=== PATIENT | female | born 1935 | race Caucasian/White ===

== ENCOUNTER 2017-08-05 10:57 | Emergency (ER) | payer OTHER, MEDICARE ==
[~2017-08-05] VITALS: Ht 144.8 cm; Wt 49.9 kg
--- NOTE | 2017-08-05 11:48 | ED GENERAL ADULT ---
History of Present Illness General Chief Complaint: General Adult Stated Complaint: PER PT "I FEEL AWFUL" Source: patient, family Exam Limitations: dementia Vital Signs & Intake/Output Vital Signs & Intake/Output Vital Signs Date Time Temp Pulse Resp B/P B/P Pulse O2 O2 Flow FiO2 Mean Ox Delivery Rate 08/05 1731 98.4 74 18 120/61 92 Room Air 08/05 1416 98.2 85 18 154/74 95 Room Air 08/05 1304 Room Air 08/05 1241 97.5 08/05 1104 97.1 78 15 131/75 94 Room Air Room Air Allergies Coded Allergies: oxycodone (Intermediate, RASH 08/05/17) Reconcile Medications Aspirin (Aspirin*) 81 MG TAB.CHEW 1 TAB PO DAILY HEART HEALTH (Reported) Calcium Carbonate/Vitamin D3 (Calcium 500 + D Tablet) 500 MG-400 TABLET 1 TAB PO BID VITAMIN SUPPORT (Reported) Cholecalciferol (Vitamin D3) 1,000 UNIT TABLET 1 TAB PO DAILY VITAMIN SUPPORT (Reported) Donepezil HCl 10 MG TABLET 1 TAB PO DAILY DEMENTIA (Reported) Escitalopram Oxalate 10 MG TABLET 1 TAB PO DAILY MENTAL HEALTH (Reported) Lactobacillus Acidophilus (Probiotic) 10 BILLION CELL CAPSULE 2 CAP PO DAILY GI (Reported) Multivitamin (Daily Multiple Vitamin) 1 EACH TABLET 1 TAB PO DAILY VITAMIN SUPPORT (Reported) Jackson-3 Fatty Acids/Fish Oil (Fish Oil 1,000 MG Capsule) 340 MG-1,000 MG CAPSULE 1 CAP PO DAILY SUPPLEMENT (Reported) Prednisone 5 MG TABLET 1 TAB PO BID STEROID (Reported) Triage Note: PT TO ED WITH DAUGHTER FOR NAUSEA AND 2 EPISODES OF VOMITING THIS MORNING (SAW DR. CORDOVA AND PRESCRIBED MEDS). LAST BM TODAY WITHOUT DIFFICULTIES. PT HAS NOT VOIDED THIS MORNING PER DAUGHTER. PT REPORTS THE PAIN IS MAINLY IN HER BACK WHICH IS CHRONIC. Triage Nurses Notes Reviewed? yes Onset: Abrupt Duration: day(s): (1) Timing: multiple episodes today Injury Environment: home Severity: mild, moderate No Modifying Factors: none Associated Symptoms: vomiting HPI: 81 year old female with history of dementia presents from home with daughter for chief complaint of "feeling awful". Per the daughter she vomited twice and did not make any urine. No abdominal pain or diarrhea. Patient reports chronic back pain. Past History Travel History Traveled to [place] past 21 day No Medical History Any Pertinent Medical History? see below for history Neurological: dementia Respiratory: COPD, emphysema Gastrointestinal: BARROTS ESOPHAGUS Musculoskeletal: RA Surgical History Surgical History: non-contributory Psychosocial History What is your primary language Arabic Tobacco Use: Quit >30 days ago Family History Hx Contributory? No Review of Systems Review of Systems Constitutional: Reports: weakness. Denies: chills, fever. EENTM: Reports: no symptoms. Respiratory: Denies: cough, short of breath. Cardiovascular: Denies: chest pain, palpitations. GI: Reports: nausea, vomiting. Denies: abdominal pain, diarrhea. Genitourinary: Denies: discharge, dysuria, frequency, hematuria. Musculoskeletal: Reports: back pain (CHRONIC). Skin: Reports: no symptoms. Neurological/Psychological: Reports: no symptoms. Hematologic/Endocrine: Denies: bruising, bleeding, polyuria, polydipsia. Immunologic/Allergic: Denies: splenectomy. All Other Systems: Reviewed and Negative Physical Exam Physical Exam General Appearance: well developed/nourished, alert, awake, mild distress Head: atraumatic, normal appearance Eyes: Bilateral: normal appearance, PERRL, EOMI. Ears, Nose, Throat: normal pharynx, DRY ORAL MUCOSA Neck: normal inspection, supple, full range of motion Respiratory: normal breath sounds, chest non-tender, no respiratory distress Cardiovascular: regular rate/rhythm Peripheral Pulses: 2+ radial (R), 2+ radial (L) Gastrointestinal: normal bowel sounds, soft, non-tender Extremities: normal inspection, normal capillary refill, normal range of motion, no edema Neurologic/Psych: no motor/sensory deficits, awake, alert Skin: intact, normal color, warm/dry Core Measures ACS in differential dx? No CVA/TIA Diagnosis: No Sepsis Present: No Sepsis Focused Exam Completed? No Progress Differential Diagnoses I considered the following diagnoses in my evaluation of the patient: [SBO, GASTRITIS, DEHYDRATION, COREEN, ELECTROLYTE ABNORMALITY, ] Plan of Care: Orders Procedure Date/time Status Regular Diet 08/06 B Active LACTIC ACID 08/05 1431 Complete CULTURE,STOOL 08/05 1348 Active C.DIFFICILE 08/05 1348 Active Straight Cath 08/05 1203 Active RAPID VIRAL INFLUENZA A 08/05 1203 Complete EKG 08/05 1148 Active URINALYSIS 08/05 1131 Complete TROPONIN LEVEL 08/05 1131 Complete LACTIC ACID 08/05 1131 Complete COMPREHENSIVE METABOLIC PANEL 08/05 1131 Complete CBC WITHOUT DIFFERENTIAL 08/05 1131 Complete Laboratory Tests 08/05/17 1525: Lactic Acid 1.1 08/05/17 1336: Urine Color YEL, Urine Clarity CLEAR, Urine pH 6.0, Ur Specific [place] 1.020, Urine Protein NEG, Urine Ketones NEG, Urine Nitrite NEG, Urine Bilirubin NEG, Urine Urobilinogen 0.2, Ur Leukocyte Esterase NEG, Ur Microscopic EXAM NOT REQUIRED, Urine Hemoglobin NEG, Urine Glucose NEG 08/05/17 1215: Anion Gap 9, Estimated GFR > 60, BUN/Creatinine Ratio 36.0 H, Glucose 119 H, Lactic Acid 2.3 H, Calcium 9.0, Total Bilirubin 0.9, AST 17, ALT 32, Alkaline Phosphatase 62, Troponin I < 0.01, Total Protein 6.1 L, Albumin 3.3 L, Globulin 2.8, Albumin/Globulin Ratio 1.2, CBC w Diff NO MAN DIFF REQ, RBC 3.89 L, MCV 80.3 L, MCH 26.0 L, RDW 15.8 H, MPV 7.6, Gran % 90.5 H, Lymphocytes % 4.9 L, Monocytes % 3.9, Eosinophils % 0.5, Basophils % 0.2, Absolute Granulocytes 12.5 H, Absolute Lymphocytes 0.7 L, Absolute Monocytes 0.5, Absolute Eosinophils 0.1, Absolute Basophils 0, PUBS MCHC 32.4 L Microbiology 08/05 1348 STOOL: Clostridium difficile Toxin A & B - ORD 08/05 1348 STOOL: Stool Culture - ORD 08/05 1215 NASOPHARYN: Influenza Virus A & B Rapid Smear - COMP PATIETN WITH ELEVATED LACTIC ACID. ADMINISTERED IV FLUIDS, REPEAT LACTIC WNL. TOLERATING PO WELL AT BEDSIDE AND AMBULATED WITHOUT DISTRESS. STABLE FOR DISCHARGE HOME. NO CLINICAL SIGNS OF CHF ON EXAMINATION. NO FEVER OR HYPOTENSION. WILL FOLLOW UP RESULTS OF IMAGING WITH PCP. Diagnostic Imaging: Viewed by Me: Radiology Read, CT Scan. Discussed w/RAD: Radiology Read, CT Scan. Initial ED EKG: LVH, LAD, SINUS TACH 100 BPM Comments: PATIENT: AMADOR VALLECILLO PRESENT AGE: 81 PATIENT ACCOUNT NO: [id number] : 36 LOCATION: [facility] ORDERING PHYSICIAN: Celina River MD SERVICE DATE: 01/05/18-1203 EXAM TYPE: RAD - XRY-PORTABLE CHEST XRAY EXAMINATION: XR PORTABLE CHEST CLINICAL INFORMATION: SOB. COMPARISON: Chest 03/15/2017. TECHNIQUE: Portable frontal view of the chest was obtained. FINDINGS: There is hyperinflation of lungs likely COPD from previous study. Prominent reticular interstitial changes are seen especially in both lung bases likely vascular congestion. There is prominent bilateral lucien likely underlying pulmonary arterial hypertension. The heart size is borderline enlarged. No consolidation seen. No gross bony abnormality. IMPRESSION: Cardiomegaly with pulmonary vascular congestion. Emphysema, likely some chronic interstitial changes in both lungs. DICTATED BY: Sivan CONTEH,Renard DATE/TIME DICTATED:08/05/171248 CARDIOGRAPH OPERATOR:CHARU DATE/TIME TRANSCRIBED:08/05/171248 CONFIDENTIAL, DO NOT COPY WITHOUT APPROPRIATE AUTHORIZATION. <Electronically signed in Other Vendor System> SIGNED BY: Sivan CONTEH,Renard 08/05/17 1250 PATIENT: AMADOR VALLECILLO PRESENT AGE: 81 PATIENT ACCOUNT NO: [id number] : 36 LOCATION: [facility] ORDERING PHYSICIAN: Celina River MD SERVICE DATE: 08/05/17 EXAM TYPE: CAT - CT ABD & PELVIS W IV CONTRAST EXAMINATION: CT ABDOMEN AND PELVIS WITH CONTRAST CLINICAL INFORMATION: Abdominal pain, leukocytosis and dementia. COMPARISON: None TECHNIQUE: Multidetector volumetric imaging was performed of the abdomen and pelvis following IV administration of 95 mL of Optiray 320 intravenous contrast. Sagittal and coronal reformatted images were obtained on the technologist's workstation. DLP: 230 mGy-cm FINDINGS: LUNG BASES: Findings in the lung bases include cardiomegaly, atherosclerotic calcification of right coronary artery and atherosclerosis of the descending thoracic aorta. Scattered linear and bandlike opacities of scarring and atelectasis, architectural distortion and minimal traction bronchiectasis in lung bases. 0.2 cm calcified granuloma in the left lower lobe. There is a surgical clip within the left lower lobe. There are paraseptal emphysematous changes. LIVER, GALLBLADDER, AND BILIARY TREE: Liver has normal size, contour and attenuation. 0.6 cm simple cyst in the left lobe of the liver. Gallbladder is unremarkable. No intrahepatic or extrahepatic bile duct dilatation. PANCREAS: Unremarkable. SPLEEN: Spleen is normal in size. Multiple noncalcified, noncystic hypodense lesions scattered throughout the spleen, largest measuring up to 1 cm. There are no perisplenic fluid collections. Splenic vein is patent. ADRENAL GLANDS: Unremarkable. KIDNEYS AND URETERS: Kidneys are normal in size and enhance symmetrically. No nephrolithiasis or hydronephrosis. Multiple bilateral renal cortical cysts. The ureters are unremarkable. BLADDER: Unremarkable. GASTROINTESTINAL TRACT: Loops of bowel are normal in size. Mild diverticulosis of the sigmoid colon without diverticulitis. No abdominal abscess, ascites or pneumoperitoneum. ABDOMINAL WALL: Bilateral fat-containing, indirect inguinal hernias. LYMPH NODES: Normal. VASCULAR: [id number] atherosclerosis of abdominal aorta and iliac arteries without aneurysm. PELVIC VISCERA: Status post hysterectomy. No pelvic mass or free fluid. OSSEOUS STRUCTURES: Old, healed intertrochanteric fracture of the left femur with femoral plate and dynamic neck screw in satisfactory position. Bones are diffusely osteoporotic. No acute findings in the severely degenerated lower thoracic and lumbar spine. There is a bone island of the posterior right ilium IMPRESSION: 1. Multiple hypodense foci scattered throughout the spleen are nonspecific but could represent abscesses or noncalcified granulomas. In a patient with leukocytosis, query whether there is septicemia. 2. Mild diverticulosis of the sigmoid colon without diverticulitis. 3. Findings in lung bases include cardiomegaly, paraseptal emphysema, postsurgical changes in the left lower lobe, scattered areas of scarring and atelectasis. DICTATED BY: Ayo Ceballos MD DATE/TIME DICTATED:08/05/171457 CARDIOGRAPH OPERATOR:CHARU DATE/TIME TRANSCRIBED:08/05/171457 CONFIDENTIAL, DO NOT COPY WITHOUT APPROPRIATE AUTHORIZATION. <Electronically signed in Other Vendor System> SIGNED BY: Ayo Ceballos MD 08/05/17 1519 Departure Departure Time of Disposition: 1815 Disposition: HOME OR SELF CARE Condition: Stable Clinical Impression Primary Impression: Leukocytosis Secondary Impressions: Dehydration Referrals: Carlos CONTEH,Gigi Zayas (PCP/Family) Additional Instructions: INCREASE YOUR FLUID INTAKE AT HOME FOLLOW UP WITH DR CORDOVA IN THE OFFICE NEXT WEEK FOR REEVALUATION TO GO OVER IMAGING REPORTS RETURN TO THE ER IMMEDIATELY FOR ANY CHANGING OR WORSENING SYMPTOMS, FEVER, CHILLS Departure Forms: Customer Survey General Discharge Information Critical Care Note Critical Care Note Critical Care Time: 30-74 min
[2017-08-05] MEDS ORDERED: PREDNISONE5 M1 PO (12:36)
[2017-08-05] MEDS ORDERED: ESCITALOPRAM OX10 MG PO (12:36)
[2017-08-05] MEDS ORDERED: ASPIRIN81 M4 PO (12:37)
[2017-08-05] MEDS ORDERED: DONEPEZIL HCL10 M1 PO (12:37)
[2017-08-05] MEDS ORDERED: VITAMIN D31000 UNI2 PO (12:37)
[2017-08-05] MEDS ORDERED: FISH OIL 1,0001 EACH PO (12:37)
[2017-08-05] MEDS ORDERED: CALCIUM 500 +1 EAC5 PO (12:38)
[2017-08-05] MEDS ORDERED: PROBIOTIC1 EACH PO (12:38)
[2017-08-05] MEDS ORDERED: DAILY MULTIPLE1 EACH PO (12:39)
[2017-08-05 12:40] LABS: ABSOLUTE BASOPHIL COUNT 0 /CUMM (0.0-0.2); ABSOLUTE EOSINOPHIL COUNT 0.1 /CUMM (0.0-0.7); ABSOLUTE GRANULOCYTE CT 12.5 /CUMM (1.4-6.5); ABSOLUTE LYMPH COUNT 0.7 /CUMM (1.2-3.4); ABSOLUTE MONOCYTE COUNT 0.5 /CUMM (0.10-0.60); BASOPHIL % 0.2 % (0.0-2.0); EOSINOPHIL % 0.5 % (0-5); HEMATOCRIT 31.2 % (37-47); MEAN CORPUSCULAR HGB CONC 32.4 G/DL (33.0-37.0); MEAN CORPUSCULAR VOLUME 80.3 FL (81.0-99.0); MEAN PLATELET VOLUME 7.6 FL (7.4-10.4); RBC DISTRIBUTION WIDTH 15.8 % (11.5-14.5); RED BLOOD CELL CT 3.89 /CUMM (4.20-5.40); WHITE BLOOD CELL COUNT 13.9 /CUMM (4.8-10.8)
--- NOTE | 2017-08-05 12:55 | RADIOLOGY REPORT ---
EXAMINATION: XR PORTABLE CHEST CLINICAL INFORMATION: SOB. COMPARISON: Chest 03/15/2017. TECHNIQUE: Portable frontal view of the chest was obtained. FINDINGS: There is hyperinflation of lungs likely COPD from previous study. Prominent reticular interstitial changes are seen especially in both lung bases likely vascular congestion. There is prominent bilateral lucien likely underlying pulmonary arterial hypertension. The heart size is borderline enlarged. No consolidation seen. No gross bony abnormality. IMPRESSION: Cardiomegaly with pulmonary vascular congestion. Emphysema, likely some chronic interstitial changes in both lungs.
[2017-08-05 13:16] LABS: GRANULOCYTE % 90.5 % (42.2-75.2); PLATELET COUNT 369 /CUMM (130-400)
--- NOTE | 2017-08-05 15:19 | CT SCAN REPORT ---
EXAMINATION: CT ABDOMEN AND PELVIS WITH CONTRAST CLINICAL INFORMATION: Abdominal pain, leukocytosis and dementia. COMPARISON: None TECHNIQUE: Multidetector volumetric imaging was performed of the abdomen and pelvis following IV administration of 95 mL of Optiray 320 intravenous contrast. Sagittal and coronal reformatted images were obtained on the technologist's workstation. DLP: 230 mGy-cm FINDINGS: LUNG BASES: Findings in the lung bases include cardiomegaly, atherosclerotic calcification of right coronary artery and atherosclerosis of the descending thoracic aorta. Scattered linear and bandlike opacities of scarring and atelectasis, architectural distortion and minimal traction bronchiectasis in lung bases. 0.2 cm calcified granuloma in the left lower lobe. There is a surgical clip within the left lower lobe. There are paraseptal emphysematous changes. LIVER, GALLBLADDER, AND BILIARY TREE: Liver has normal size, contour and attenuation. 0.6 cm simple cyst in the left lobe of the liver. Gallbladder is unremarkable. No intrahepatic or extrahepatic bile duct dilatation. PANCREAS: Unremarkable. SPLEEN: Spleen is normal in size. Multiple noncalcified, noncystic hypodense lesions scattered throughout the spleen, largest measuring up to 1 cm. There are no perisplenic fluid collections. Splenic vein is patent. ADRENAL GLANDS: Unremarkable. KIDNEYS AND URETERS: Kidneys are normal in size and enhance symmetrically. No nephrolithiasis or hydronephrosis. Multiple bilateral renal cortical cysts. The ureters are unremarkable. BLADDER: Unremarkable. GASTROINTESTINAL TRACT: Loops of bowel are normal in size. Mild diverticulosis of the sigmoid colon without diverticulitis. No abdominal abscess, ascites or pneumoperitoneum. ABDOMINAL WALL: Bilateral fat-containing, indirect inguinal hernias. LYMPH NODES: Normal. VASCULAR: [id number] atherosclerosis of abdominal aorta and iliac arteries without aneurysm. PELVIC VISCERA: Status post hysterectomy. No pelvic mass or free fluid. OSSEOUS STRUCTURES: Old, healed intertrochanteric fracture of the left femur with femoral plate and dynamic neck screw in satisfactory position. Bones are diffusely osteoporotic. No acute findings in the severely degenerated lower thoracic and lumbar spine. There is a bone island of the posterior right ilium IMPRESSION: 1. Multiple hypodense foci scattered throughout the spleen are nonspecific but could represent abscesses or noncalcified granulomas. In a patient with leukocytosis, query whether there is septicemia. 2. Mild diverticulosis of the sigmoid colon without diverticulitis. 3. Findings in lung bases include cardiomegaly, paraseptal emphysema, postsurgical changes in the left lower lobe, scattered areas of scarring and atelectasis.
[2017-08-05 17:31] VITALS: BP 120/61
== END 2017-08-05 19:28 ==
LOC: ERH 10:57
PROVIDERS: Physician Assistant Medical
DX: D72.829 Elevated white blood cell count, unspecified (principal); E86.0 Dehydration
CPT/HCPCS: 71045; 74177; 81003; 87045; 87804; 87804-59; 93005; 93010; 96374; 96375; 99291; J0131; J2405; J7040

== ENCOUNTER 2017-10-04 12:43 | Inpatient (IN) | payer OTHER, MEDICARE ==
[~2017-10-04] VITALS: Ht 139.7 cm; Wt 47.3 kg
[~2017-10-04 12:43] MED LIST: ASPIRIN81 M4 PO; CALCIUM 500 +1 EAC5 PO; DAILY MULTIPLE1 EACH PO; DONEPEZIL HCL10 M1 PO; ESCITALOPRAM OX10 MG PO; FISH OIL 1,0001 EACH PO; PREDNISONE5 M1 PO; PROBIOTIC1 EACH PO; VITAMIN D31000 UNI2 PO
--- NOTE | 2017-10-04 14:39 | ED MVC/FALL/TRAUMA COMPLAINT ---
History of Present Illness General Chief Complaint: Fall Stated Complaint: FALL X20 MIN AGO RIGHT LEG PAIN Source: patient, family Exam Limitations: no limitations Vital Signs & Intake/Output Vital Signs & Intake/Output Vital Signs Date Time Temp Pulse Resp B/P B/P Pulse O2 O2 Flow FiO2 Mean Ox Delivery Rate 10/04 2217 96.0 66 18 110/60 93 Room Air 10/04 2205 93 Room Air 10/04 2109 97.1 73 18 118/65 94 Room Air 10/04 1831 97.2 68 18 157/69 95 Room Air 10/04 1550 97.8 74 18 135/65 94 Room Air 10/04 1248 97.5 70 18 103/64 93 Room Air Allergies Coded Allergies: oxycodone (Intermediate, RASH 08/05/17) Reconcile Medications Aspirin (Aspirin*) 81 MG TAB.CHEW 1 TAB PO DAILY HEART HEALTH (Reported) Calcium Carbonate/Vitamin D3 (Calcium 500 + D Tablet) 500 MG-400 TABLET 1 TAB PO BID VITAMIN SUPPORT (Reported) Cholecalciferol (Vitamin D3) 1,000 UNIT TABLET 1 TAB PO DAILY VITAMIN SUPPORT (Reported) Donepezil HCl 10 MG TABLET 1 TAB PO DAILY DEMENTIA (Reported) Escitalopram Oxalate 10 MG TABLET 1 TAB PO DAILY MENTAL HEALTH (Reported) Lactobacillus Acidophilus (Probiotic) 10 BILLION CELL CAPSULE 2 CAP PO DAILY GI (Reported) Multivitamin (Daily Multiple Vitamin) 1 EACH TABLET 1 TAB PO DAILY VITAMIN SUPPORT (Reported) [place]-3 Fatty Acids/Fish Oil (Fish Oil 1,000 MG Capsule) 340 MG-1,000 MG CAPSULE 1 CAP PO DAILY SUPPLEMENT (Reported) Prednisone 5 MG TABLET 1 TAB PO BID STEROID (Reported) Triage Note: PT TO TRIAGE WITH HER DAUGHTER, WHO STATES THAT WHILE PT WAS WALKING INTO HOUSE HER R LEG GAVE OUT AND SHE FELL CUTTING HER R CONWAY. WHEN DAUGHTER TRIED TO GET PT UP TO WALK , PT WAS UNABLE TO AND HER RLE KEPT GIVING OUT. THIS NURSE ATTEMPTED TO ASSIST PT TO STAND BUT SHE WAS UNABLE TO , COMPLAINS OF PAIN TO HER RLE. DECLINES MEDS AT TRIAGE Triage Nurses Notes Reviewed? yes Onset: Abrupt Duration: minute(s): Timing: single episode today Severity: moderate Injuries/Fall Location: lower extremity Method of Injury: fall Loss of Consciousness: no loss of consciousness Modifying Factors: Worsens With: movement. HPI: 82yo female with hx of COPD, dementia presents to ED complaining of fall prior to arrival. Per patient's daughter, the patient fell onto her knees and Right lower leg. There was no head strike, no loss of consciousness. There was bleeding from right leg after the fall, patient's granddaughter placed bandage around this area. They tried to have patient stand and walk however she could not bear weight on the right leg so they came here to the emergency department. Patient complains of pain to right knee with movement. The patient denies back pain, neck pain, headache, abdominal pain, difficulty breathing. Daughter reports that the patient's tetanus status is up-to-date. (Jacqueline Acosta) Past History Travel History Traveled to [place] past 21 day No Medical History Any Pertinent Medical History? see below for history Neurological: dementia Respiratory: COPD, emphysema Gastrointestinal: BARROTS ESOPHAGUS Hepatic: NONE Musculoskeletal: RA Psychiatric: NONE Endocrine: NONE Blood Disorders: NONE Cancer(s): NONE BAR HOST/Reproductive: NONE Surgical History Surgical History: non-contributory Psychosocial History What is your primary language Ivorian Tobacco Use: Never used ETOH Use: denies use Illicit Drug Use: denies illicit drug use Family History Hx Contributory? No (Jacqueline Acosta) Review of Systems Review of Systems Constitutional: Reports: no symptoms. Eyes: Reports: no symptoms. Ears, Nose, Throat, Mouth: Reports: no symptoms. Respiratory: Reports: no symptoms. Cardiovascular: Reports: no symptoms. Gastrointestinal/Abdominal: Reports: no symptoms. Genitourinary: Reports: no symptoms. Musculoskeletal: Reports: see HPI. Skin: Reports: see HPI. Neurological/Psychological: Reports: no symptoms. All Other Systems: Reviewed and Negative (Jacqueline Acosta) Physical Exam Physical Exam General Appearance: well developed/nourished, no apparent distress, alert, awake Head: atraumatic, normal appearance Eyes: Bilateral: normal appearance, PERRL, EOMI. Ears, Nose, Throat, Mouth: hearing grossly normal, moist mucous membrane Neck: normal inspection, supple, full range of motion, no midline tenderness Respiratory: normal breath sounds, chest non-tender, no respiratory distress, lungs clear Cardiovascular: regular rate/rhythm, normal peripheral pulses Peripheral Pulses: 2+ dorsalis pedis (R), 2+ dorsalis pedis (L) Gastrointestinal: normal bowel sounds, soft, non-tender, no organomegaly Back: normal inspection, normal range of motion, no vertebral tenderness Extremities: tenderness to lateral and anterior right knee 3x2 cm skin avulsion to anterior right [place], no active bleeding No Hip/groin tenderness, no pain with passive ROM at hip joints Neurologic/Psych: awake, alert, oriented x 3, 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 No CVA/TIA Diagnosis No Sepsis Present: No Sepsis Focused Exam Completed? No (Amanda BELL,Jacqueline Blancas) Progress Differential Diagnosis: C/T/L spine injury, ext injury, pelvis injury, spinal cord injury Plan of Care: Orders Procedure Date/time Status Regular Diet 10/05 B Active CBC WITHOUT DIFFERENTIAL 10/05 599 Active BASIC ELECTROLYTES PLUS BUN&CR 10/05 599 Active Code Status 10/04 2226 Active Device(s) 10/04 2210 Active Weight 10/05 2203 Active Vital Signs 10/05 2203 Active Teach/Educate 10/05 2203 Active Pain Treatment and Response 10/05 2203 Active Nutritional Intake, Monitor 10/05 2203 Active Isolation 10/05 2203 Active Intake & Output 10/05 2203 Active Patient Care Conference 10/05 2203 Active Activity/Ambulation 10/05 2203 Active Pathway - chart 10/04 2033 Active TRC EVALUATION (GEN) 10/05 2019 Active OXYGEN SETUP (GEN) 10/05 2019 Active Saline Lock 10/05 2019 Active Pathway - chart 10/05 2019 Active House Staff 10/05 2019 Active Patient Data 10/05 2011 Active ED Holding Orders 10/04 1958 Active Admit to inpatient 10/04 1958 Active Vital Signs 10/04 1958 Active Code Status 10/04 195 Complete Durable Medical Equipment 10/04 1754 Active COMPREHENSIVE METABOLIC PANEL 10/04 173 Complete CBC WITHOUT DIFFERENTIAL 10/04 173 Complete Intake & Output 10/04 1712 Active VTE Mechanical Prophylaxis 10/04 UNK Active Current Medications Sig/Danita Start time Last Medication Dose Stop Time Status Admin Enoxaparin Sodium 40 MG DAILY 10/05 1000 UNVr (Lovenox) Acetaminophen 650 MG Q6P PRN 10/04 2044 AC (Tylenol) Acetaminophen 1,000 MG Q6P PRN 10/04 2044 AC (Ofirmev) Ketorolac 15 MG Q6P PRN 10/04 2044 AC 10/04 Tromethamine 10/074 (Toradol) Sodium Chloride 1,000 ML Q13H 10/04 2029 AC 10/04 (Normal Saline 0.9%) 10/05 2228 2111 Laboratory Tests 10/04/17 1825: Anion Gap 8, Estimated GFR > 60, BUN/Creatinine Ratio 50.0 H, Glucose 85, Calcium 9.1, Total Bilirubin 0.6, AST 13 L, ALT 26, Alkaline Phosphatase 58, Total Protein 5.7 L, Albumin 2.9 L, Globulin 2.8, Albumin/Globulin Ratio 1.0 L, CBC w Diff NO MAN DIFF REQ, RBC 4.05 L, MCV 76.7 L, MCH 25.0 L, MCHC 32.6 L, RDW 17.7 H, MPV 7.7, Gran % 89.7 H, Lymphocytes % 5.7 L, Monocytes % 4.3, Eosinophils % 0.1, Basophils % 0.2, Absolute Granulocytes 12.8 H, Absolute Lymphocytes 0.8 L, Absolute Monocytes 0.6, Absolute Eosinophils 0, Absolute Basophils 0 Right tibial plateau fracture identified on x-ray. Patient has intact distal pulses and sensation. Spoke with Dr. Gramajo regarding this patient - non weight bearing x 6 weeks. transfer to wheelchair. Treatment is allowing joint to heal and place in knee immobilizer. HE can follow up with patient in 2 weeks. Patient placed in knee immobilizer. Patient has steps in the home, family do not feel comfortable with taking patient home at this time, they do not believe they can assist her with her ADLs such as showering and transferring from bed to wheelchair. Case management reviewed patient's case. Patient requires a 3 minute stay prior to rehabilitation placement. Dr. Lopez present to see and evaluate the patient. Spoke with Dr. Hernandez regarding this patient's general medicine admission. Diagnostic Imaging: Viewed by Me: Radiology Read. Discussed w/RAD: Radiology Read. Radiology Impression: PATIENT: AMADOR VALLECILLO PRESENT AGE: 82 PATIENT ACCOUNT NO: [id number] : 36 LOCATION: [facility] ORDERING PHYSICIAN: Jacqueline BELL SERVICE DATE: 10/04/17 EXAM TYPE: RAD - XRY-KNEE COMPLETE RIGHT; [id number], RIGHT EXAMINATION: XR KNEE, RIGHT XR TIBIA AND FIBULA, RIGHT CLINICAL INFORMATION: Fall. COMPARISON: None TECHNIQUE: Four views of the right knee. Two views of the right tibia and fibula. FINDINGS: RIGHT KNEE: There is a comminuted impacted fracture of the lateral tibial plateau extending into the metadiaphysis. The fracture is minimally displaced. Lipohemarthrosis is present with a fat fluid level seen in the suprapatellar fossa on the shoot through lateral view of the knee. There is degenerative joint disease. There is narrowing of the medial and the lateral femorotibial joints with marginal bone spurs. There is also narrowing of the patellofemoral joint with a small marginal spur of the patella. RIGHT TIBIA AND FIBULA: There is a compression comminuted fracture of the lateral tibial plateau extending into the metadiaphysis. This is better seen on the right knee radiographs. No additional fracture of the right tibia or fibula. There is advanced degenerative change at the ankle joint. There is joint narrowing of the ankle joint with marginal bone spur and subchondral sclerosis involving the tibia and the talus. There is a large plantar calcaneal spur. IMPRESSION: 1. Intra-articular comminuted impacted fracture of the lateral tibial plateau. Lipohemarthrosis of the knee joint. This can be further assessed with CT scan. 2. 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 3. Degenerative joint narrowing of the ankle joint. DICTATED BY: Adelso Pathak MD DATE/TIME DICTATED:10/04/171642 [employer] :CHARU DATE/TIME TRANSCRIBED:10/04/171642 CONFIDENTIAL, DO NOT COPY WITHOUT APPROPRIATE AUTHORIZATION. <Electronically signed in Other Vendor System> SIGNED BY: Adleso Pathak MD 10/04/171658, PATIENT: AMADOR VALLECILLO PRESENT AGE: 82 PATIENT ACCOUNT NO: [id number] : LOCATION: [facility] ORDERING PHYSICIAN: Jacqueline BELL SERVICE DATE: 10/04/17 EXAM TYPE: RAD - XRY-HIP 2-3 VIEWS, RIGHT EXAMINATION: XR HIP, RIGHT CLINICAL INFORMATION: Status post fall. Evaluate for fracture. COMPARISON: None TECHNIQUE: Two views of the right hip. FINDINGS: Bones appear diffusely osteoporotic. Alignment is normal the right hip. No acute fracture, subluxation or focal soft tissue swelling. The femoroacetabular joint space is maintained. Multilevel degenerative disc space narrowing, vacuum disc phenomenon and osteophytosis of the partially visualized lumbar spine. IMPRESSION: No acute findings at the right hip. DICTATED BY: Ayo Ceballos MD DATE/TIME DICTATED:1648 [employer]:CHARU DATE/TIME TRANSCRIBED:10/04/171648 CONFIDENTIAL, DO NOT COPY WITHOUT APPROPRIATE AUTHORIZATION. <Electronically signed in Other Vendor System> SIGNED BY: Ayo Ceballos MD 10/04/171654 (Jacqueline Acosta) Departure Departure Disposition: STILL A PATIENT Condition: Stable Clinical Impression Primary Impression: Tibial plateau fracture, right Secondary Impressions: Fall Referrals: Gigi Gonzalez MD (PCP/Family) Departure Forms: Customer Survey General Discharge Information Admission Note Spoke With: True Dill MD[facility] Documentation of Exam: Documentation of any treatments & extenuating circumstances including Concerns Regarding Discharge (functional status, medication knowledge or non-compliance, living conditions, etc.) that warrant an admission rather than observation: [ Acute tibial plateau fracture requiring immobilization, pain management, physical therapy evaluation, short-term rehabilitation for assistance with a wheelchair and ADLs, nonweightbearing status for 6 months] (Amanda BELL,Jacqueline Blancas) PA/CREATIVE SERVICES WRITER Co-Sign Statement Statement: ED Attending supervision documentation- [X] I saw and evaluated the patient. I have also reviewed all the pertinent lab results and diagnostic results. I agree with the findings and the plan of care as documented in the PA's/CREATIVE SERVICES WRITER's documentation. [] I have reviewed the ED Record and agree with the PA's/CREATIVE SERVICES WRITER's documentation. [] Additions or exceptions (if any) to the PAs/CREATIVE SERVICES WRITER's note and plan are summarized below: [] (Thom Lopez DO)
--- NOTE | 2017-10-04 16:55 | RADIOLOGY REPORT ---
EXAMINATION: XR HIP, RIGHT CLINICAL INFORMATION: Status post fall. Evaluate for fracture. COMPARISON: None TECHNIQUE: Two views of the right hip. FINDINGS: Bones appear diffusely osteoporotic. Alignment is normal the right hip. No acute fracture, subluxation or focal soft tissue swelling. The femoroacetabular joint space is maintained. Multilevel degenerative disc space narrowing, vacuum disc phenomenon and osteophytosis of the partially visualized lumbar spine. IMPRESSION: No acute findings at the right hip.
--- NOTE | 2017-10-04 16:59 | RADIOLOGY REPORT ---
EXAMINATION: XR KNEE, RIGHT XR TIBIA AND FIBULA, RIGHT CLINICAL INFORMATION: Fall. COMPARISON: None TECHNIQUE: Four views of the right knee. Two views of the right tibia and fibula. FINDINGS: RIGHT KNEE: There is a comminuted impacted fracture of the lateral tibial plateau extending into the metadiaphysis. The fracture is minimally displaced. Lipohemarthrosis is present with a fat fluid level seen in the suprapatellar fossa on the shoot through lateral view of the knee. There is degenerative joint disease. There is narrowing of the medial and the lateral femorotibial joints with marginal bone spurs. There is also narrowing of the patellofemoral joint with a small marginal spur of the patella. RIGHT TIBIA AND FIBULA: There is a compression comminuted fracture of the lateral tibial plateau extending into the metadiaphysis. This is better seen on the right knee radiographs. No additional fracture of the right tibia or fibula. There is advanced degenerative change at the ankle joint. There is joint narrowing of the ankle joint with marginal bone spur and subchondral sclerosis involving the tibia and the talus. There is a large plantar calcaneal spur. IMPRESSION: 1. Intra-articular comminuted impacted fracture of the lateral tibial plateau. Lipohemarthrosis of the knee joint. This can be further assessed with CT scan. 2. 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 3. Degenerative joint narrowing of the ankle joint.
[2017-10-04 18:54] LABS: ABSOLUTE BASOPHIL COUNT 0 /CUMM (0.0-0.2); ABSOLUTE EOSINOPHIL COUNT 0 /CUMM (0.0-0.7); ABSOLUTE GRANULOCYTE CT 12.8 /CUMM (1.4-6.5); ABSOLUTE LYMPH COUNT 0.8 /CUMM (1.2-3.4); ABSOLUTE MONOCYTE COUNT 0.6 /CUMM (0.10-0.60); BASOPHIL % 0.2 % (0.0-2.0); EOSINOPHIL % 0.1 % (0-5); MEAN CORPUSCULAR HGB CONC 32.6 G/DL (33.0-37.0); MEAN CORPUSCULAR VOLUME 76.7 FL (81.0-99.0); MEAN PLATELET VOLUME 7.7 FL (7.4-10.4); PLATELET COUNT 397 /CUMM (130-400); RBC DISTRIBUTION WIDTH 17.7 % (11.5-14.5); RED BLOOD CELL CT 4.05 /CUMM (4.20-5.40); WHITE BLOOD CELL COUNT 14.3 /CUMM (4.8-10.8)
[2017-10-04 19:09] LABS: GRANULOCYTE % 89.7 % (42.2-75.2)
--- NOTE | 2017-10-04 20:18 | History & Physical ---
Rohini Marin MD 10/04/17 2017: General Information and HPI MD Statement: I have seen and personally examined AMADOR VALLECILLO and documented this H&P. The patient is a 82 year old F who presented with a patient stated chief complaint of right tibial fracture post-fall. Source of Information: patient, family, old records Exam Limitations: dementia History of Present Illness: Patient is a 82-year-old female with a past medical history significant for dementia on donepezil, COPD, GERD/Kingston's esophagus, rheumatoid arthritis on chronic prednisone prior hip replacement surgery, that presents to us after a fall. The patient is joined by her daughter and granddaughter who give us history as the patient does have a degree of dementia. Apparently today, the patient was on her way back from getting her Senzia shot once a month for her rheumatoid arthritis. She was coming the stairs to the house and tripped/her leg gave out (daughter is unsure as to the cause of fall as she was looking away while it happened). The patient fell on her right conway during the fall causing bleeding, no loss of consciousness, no strike to the head. After this she attempted to stand up straight again but could not stand on her right leg. The patient/daughter denies any chest pain, headache, vision change, palpitations, shortness of breath, focal neuro deficits prior to the fall and during interview. Patient states that the pain is "all right" but apparently was wincing in pain prior to interview according to granddaughter. The patient has broken her hip in the past and has required hip replacement surgery. She has also previously fallen out of her bed requiring workup at urgent care, old fractures on her back on imaging. The daughter states that the patient has been sick for the past couple weeks with a cold and has been more weak than usual. Her diet has deteriorated and the daughter states that she sometimes has to force her mother to eat. She does supplement with 3 Ensures a day. The patient is reliant on her family for help with her activities of daily living including showering, cooking, bathroom. The family states that they're not comfortable with taking care of the patient at this time if she requires use of wheelchair/house not equipped. The patient's primary care physician is Dr. Gonzalez. Patient is up-to-date on her tetanus shot. Allergies/Medications Allergies: Coded Allergies: oxycodone (Intermediate, RASH 08/05/17) Home Med list Aspirin (Aspirin*) 81 MG TAB.CHEW 1 TAB PO DAILY HEART HEALTH (Reported) Calcium Carbonate/Vitamin D3 (Calcium 500 + D Tablet) 500 MG-400 TABLET 1 TAB PO BID VITAMIN SUPPORT (Reported) Cholecalciferol (Vitamin D3) 1,000 UNIT TABLET 1 TAB PO DAILY VITAMIN SUPPORT (Reported) Donepezil HCl 10 MG TABLET 1 TAB PO DAILY DEMENTIA (Reported) Escitalopram Oxalate 10 MG TABLET 1 TAB PO DAILY MENTAL HEALTH (Reported) Lactobacillus Acidophilus (Probiotic) 10 BILLION CELL CAPSULE 2 CAP PO DAILY GI (Reported) Multivitamin (Daily Multiple Vitamin) 1 EACH TABLET 1 TAB PO DAILY VITAMIN SUPPORT (Reported) [place]-3 Fatty Acids/Fish Oil (Fish Oil 1,000 MG Capsule) 340 MG-1,000 MG CAPSULE 1 CAP PO DAILY SUPPLEMENT (Reported) Prednisone 5 MG TABLET 1 TAB PO BID STEROID (Reported) Compliance With Home Meds: GOOD Past History Travel History Traveled to [place] past 21 day No Medical History Neurological: dementia Respiratory: COPD, emphysema Gastrointestinal: BARROTS ESOPHAGUS Hepatic: NONE Musculoskeletal: RA Psychiatric: NONE Endocrine: NONE Blood Disorders: NONE Cancer(s): NONE ECHOCARDIOLOGIST/Reproductive: NONE Surgical History Surgical History: non-contributory Past Family/Social History Family History Relations & Conditions if any Family history was reviewed; no changes noted. Psychosocial History Smoking Status: Former Smoker ETOH Use: denies use Illicit Drug Use: denies illicit drug use Review of Systems Review of Systems Constitutional: Reports: weakness. EENTM: Reports: no symptoms. Cardiovascular: Reports: no symptoms. Respiratory: Reports: no symptoms. GI: Reports: no symptoms. Genitourinary: Reports: no symptoms. Musculoskeletal: Reports: see HPI, joint pain, joint swelling, muscle stiffness. Skin: Reports: see HPI. Neurological/Psychological: Reports: dementia. Hematologic/Endocrine: Reports: bruising, bleeding. Immunologic/Allergic: Reports: no symptoms. All Other Systems: Reviewed and Negative Exam & Diagnostic Data Last 24 Hrs of Vital Signs/I&O Vital Signs Date Time Temp Pulse Resp B/P B/P Pulse O2 O2 Flow FiO2 Mean Ox Delivery Rate 10/04 2217 96.0 66 18 110/60 93 Room Air 10/04 2205 93 Room Air 10/04 2109 97.1 73 18 118/65 94 Room Air 10/04 1831 97.2 68 18 157/69 95 Room Air 10/04 1550 97.8 74 18 135/65 94 Room Air 10/04 1248 97.5 70 18 103/64 93 Room Air Intake & Output 10/04 1600 10/04 0800 10/04 0000 Intake Total Output Total Balance Patient 102 lb Weight Physical Exam General Appearance Alert, Cooperative, No Acute Distress Skin No Rashes, right conway wound, bandaged. left conway ecchymoses. Skin Temp/Moisture Exam: Warm/Dry Sepsis Skin Exam (color): Normal for Ethnicity HEENT Atraumatic, PERRLA, EOMI, Mucous Membr. moist/pink Neck Supple, No JVD Cardiovascular Regular Rate, Normal S1, Normal S2, No Murmurs Lungs Clear to Auscultation, Normal Air Movement Abdomen Normal Bowel Sounds, Soft, No Tenderness, No Hepatospenomegaly, No Masses Neurological Normal Speech Extremities No Clubbing, No Cyanosis, No Edema, Normal Pulses, intact pulses and sensation distally. tenderness on palpation lower extremity right side. Vascular Normal Pulses, Pulses Symmetrical Sepsis Peripheral Pulse Location: Radial Sepsis Peripheral Pulse Exam: Normal Sepsis Cap Refill Exam: <2 Sec Body Front and Back (Adult) 1) Last 24 Hrs of Labs/John: Laboratory Tests 10/04/17 1825: Anion Gap 8, Estimated GFR > 60, BUN/Creatinine Ratio 50.0 H, Glucose 85, Calcium 9.1, Total Bilirubin 0.6, AST 13 L, ALT 26, Alkaline Phosphatase 58, Total Protein 5.7 L, Albumin 2.9 L, Globulin 2.8, Albumin/Globulin Ratio 1.0 L, CBC w Diff NO MAN DIFF REQ, RBC 4.05 L, MCV 76.7 L, MCH 25.0 L, MCHC 32.6 L, RDW 17.7 H, MPV 7.7, Gran % 89.7 H, Lymphocytes % 5.7 L, Monocytes % 4.3, Eosinophils % 0.1, Basophils % 0.2, Absolute Granulocytes 12.8 H, Absolute Lymphocytes 0.8 L, Absolute Monocytes 0.6, Absolute Eosinophils 0, Absolute Basophils 0 Assessment/Plan Assessment: Patient is a 82-year-old female with a past medical history significant for dementia on donepezil, COPD, GERD/Kingston's esophagus, rheumatoid arthritis on chronic prednisone prior hip replacement surgery, that presents to us after a fall. No loss of consciousness or head strike, change in vision, no chest pain, shortness of breath, palpitations. Patient has a 3 x 3 cm skin tear on the anterior right conway with no active bleed. Preserved passive range of motion. In the ED patient vitals were found to be stable, heart rate of 70. Labs showed leukocytosis of 14.3 with granulocyte predominance, hemoglobin 10.1 with MCV 76.7, increased RDW, low albumin of 2.9, BUN/creatinine 23/0.5. X-ray revealed right tibial plateau fracture. Dr. Gramajo was consulted from the ED and stated no surgical intervention, nonweightbearing for 6 weeks with wheelchair, knee immobilization, follow-up with him in 2 weeks. Of note patient does have an allergy to oxycodone. Plan Right tibial fracture -Knee immobilizer, nonweightbearing -Patient will require 3 day stay for placement in acute rehabilitation facility -Pain control with Tylenol 650 for mild pain, Tylenol 1000 mg IV every 6 for moderate pain and Toradol 15 every 6 for severe pain. Dehydration -Mildly elevated BUN, normal creatinine -Normal saline at a rate of 75 Anemia -Patient has hemoglobin of 10.1, unchanged from previous blood draw in August -Microcytic likely iron deficient versus chronic blood loss anemia -Guaic stools -Iron studies -TSH -Patient currently has no symptoms of dizziness, shorthess of breath, no melena or hematochezia. -We will advise patient to follow up with her PCP unless anemia acutely worsens. -Follow up CBCs Leukocytosis -Unchanged from previous blood draw in August -Likely reactive or secondary to recent viral illness, possibly not fully resolved, or due to recently started steroids for RA -Follow up CBCs and watch fever curve. Chronic medical problems -Donepezil 10 mg daily for dementia -Lexapro 5 mg daily for anxiety/depression -Baby aspirin for heart health -Prednisone 5 mg twice a day for rheumatoid arthritis Lovenox and left leg Alps for DVT prophylaxis Regular diet Patient is DNR DNI As Ranked By This Provider Problem List: 1. Fall 2. Tibial plateau fracture, right 3. Dehydration 4. Leukocytosis Core Measures/Misc (04/17) Acute Coronary Syndrome ACS Diagnosis: No Congestive Heart Failure Congestive Heart Failure Diagnosis No Cerebrovascular Accident CVA/TIA Diagnosis: No VTE (View Protocol) VTE Risk Factors Trauma No Mechanical VTE Prophylaxis d/t N/A MechProphylax Ordered No VTE Pharm Prophylaxis d/t NA PharmProphylax ordered Sepsis (View protocol) Sepsis Present: No Kae Meeks 10/04/172026: Resident Review Statement Resident Statement: examined this patient, discussed with internet application developer, agreed with internet application developer, discussed with family, discussed with case mgmt, reviewed images Other Findings: Mrs. Roca is an 82 yo lady with PMHx. of COPD, dementia, livia esophagus presented to ED after mechanical fall which result in comminuted tibial platuea frature, ED team spoke with orthopodics Dr. Gramajo who recommend non weight bearing x 6 weeks. transfer to wheelchair. Treatment is allowing joint to heal and place in knee immobilizer. HE will follow up with patient in 2 weeks. currently we are managing the pain, PT, she needs STR. DVT ppx. SC Rafat, DNR/DNI Fuentes CONTEH, [facility] 10/05/17 0241: Attending MD Review Statement Attending Statement Attending MD Statement: examined this patient, discuss w/resident/PA/RADIO EQUIPMENT REPAIRER, agreed w/resident/PA/RADIO EQUIPMENT REPAIRER, discussed with family, reviewed images, amended to note Attending Assessment/Plan: 82 yo F with h/o rheumatoid arthritis on prednisone, dementia, COPD, GERD, depression, is brought in for evaluation after a mechanical fall while climbing the stairs to her home. She fell onto her knees, there was no head strike or LOC. She was unable to get up and bear weight on her right leg. She did have bleeding from a skin tear on the right leg. Patient denies any symptoms other than right knee pain. At baseline, patient needs help with her ADLs. Vitals stable. Right knee is in a splint. Peripheral pulses are well felt, patient able to follow commands, moves her toes and sensation intact. Labs: WBC 14.3, microcytic anemia, BUN 25, creat 0.5. Right hip Xray: no acute finding. Right knee Xray: intra-articular comminuted impacted fracture of lateral tibial plateau. Lipohemarthrosis of knee joint. 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 Assessment and plan: 1. Mechanical witnessed fall 2. Right comminuted tibial plateau fracture 3. Rheumatoid arthritis on chronic prednisone 4. Chronic microcytic anemia 5. History of dementia 6. Leukocytosis likely steroid induced - Admit to General medicine - Fall precautions - Neurovascular checks Q4 - Ortho consult - Nonweight bearing for 6 weeks - Knee immobilizer in place - Pain management with IV tylenol and ketorolac as needed - Avoid opiate therapy in this elderly patient, allergic to oxycodone - PT, Case management consult, Rehab placement - Check vit D and B12 levels - Check iron studies, TSH - ?cause of anemia - Continue aspirin, donepezil, lexapro, prednisone. - Patient is on cimzia every 4 weeks for her rheumatoid arthritis she received the dose today. DVT ppx Lovenox. DNR/I (daughter Tiff is POA).
[2017-10-04 22:17] VITALS: BP 110/60
--- NOTE | 2017-10-05 02:43 | Admission Certification ---
Admission Certification Certification Statement - As attending physician, I certify that at the time of - admission, based on clinical presentation, severity of - symptoms, need for further diagnostic testing and - therapeutic interventions, and risk of adverse outcomes - without in-hospital treatment, in my clinical assessment, - this patient requires an acute hospital stay for a minimum - of two nights or longer. I have also considered psychsocial - factors such as support system, advanced age, financial - issues, cognitive issues, and failed out-patient treatments, - past re-admission history, safety of patient, and lack of - compliance as applicable. Specific rationale supporting this admission is: Witnessed mechanical fall, comminuted tibial plateau fracture, needs Ortho consult, pain management, PT and STR.
[2017-10-05 06:46] VITALS: BP 112/63
--- NOTE | 2017-10-05 07:23 | PN- Housestaff ---
Hardik CONTEH,Unruly 10/05/17721: Subjective Follow-up For: Mechanical fall with tibia fracture Subjective: Patient was seen and examined at bedside. She had no acute events overnight. She was in mild to moderate distress secondary to right lower extremity pain. She has no other complaints at this time and denies any chest pain, shortness breath, nausea, vomiting, fever, chills. Review of Systems Constitutional: Denies: chills, fever. Cardiovascular: Denies: chest pain, palpitations. Respiratory: Denies: cough, short of breath. Gastrointestinal: Reports: no symptoms. Genitourinary: Reports: no symptoms. Musculoskeletal: Reports: see HPI. Objective Last 24 Hrs of Vital Signs/I&O Vital Signs Date Time Temp Pulse Resp B/P B/P Pulse O2 O2 Flow FiO2 Mean Ox Delivery Rate 10/05 0646 97.8 69 18 112/63 93 Room Air 10/05 0000 Room Air 10/04 2217 96.0 66 18 110/60 93 Room Air 10/04 2205 93 Room Air 10/04 2109 97.1 73 18 118/65 94 Room Air 10/04 1831 97.2 68 18 157/69 95 Room Air 10/04 1550 97.8 74 18 135/65 94 Room Air / 1248 97.5 70 18 103/64 93 Room Air Intake & Output 10/05 0800 10/05 0000 10/04 1600 Intake Total 85 Output Total Balance 85 Intake, IV 85 Intake, Oral 0 Number 1 Bowel Movements Patient 102 lb 102 lb Weight Weight Bed scale Measurement Method Physical Exam General Appearance: Alert, Cooperative, oriented to person and place but not time Skin Temp/Moisture Exam: Warm/Dry Sepsis Skin Exam (color): Normal for Ethnicity Cardiovascular: Regular Rate, Normal S1, Normal S2 Lungs: Clear to Auscultation, Normal Air Movement Abdomen: Normal Bowel Sounds, Soft, No Tenderness Neurological: Normal Speech, Normal Tone, Sensation Intact Extremities: RLE in knee immobilizer, normal senstaion and pulses, exquisitely TTP distal to the knee Current Medications: Current Medications Sig/Danita Start time Last Medication Dose Route Stop Time Status Admin Acetaminophen 650 MG Q6P PRN 10/04 2044 AC 10/05 PO 0621 Acetaminophen 1,000 MG Q6P PRN 10/04 2044 AC 10/05 IV 0218 Aspirin 81 MG DAILY 10/05 1000 AC PO Calcium 600 MG BID 10/05 1000 AC PO Cholecalciferol 1,000 IU DAILY 10/05 1000 AC PO Donepezil HCl 10 MG DAILY 10/05 1000 AC PO Enoxaparin Sodium 40 MG DAILY 10/05 1000 AC SC Escitalopram Oxalate 10 MG DAILY 10/05 1000 AC PO Ketorolac 30 MG .STK-MED ONE 10/04 2222 DC Tromethamine IM 10/05 2223 Ketorolac 15 MG Q6P PRN 10/04 2044 AC 10/05 Tromethamine IV 10/07 Naproxen 500 MG ONCE ONE 10/04 1929 DC 10/04 PO 10/04 Naproxen 0 .STK-MED ONE 10/04 1925 DC PO Prednisone 5 MG DAILY 10/05 1000 AC PO Sodium Chloride 1,000 ML Q13H 10/04 2029 AC 10/04 IV 10/05 Last 24 Hrs of Lab/John Results Last 24 Hrs of Labs/Mics: Laboratory Tests 10/05/17 0636: Sodium Pending, Potassium Pending, Chloride Pending, Carbon Dioxide Pending, Anion Gap Pending, BUN Pending, Creatinine Pending, BUN/Creatinine Ratio Pending , CBC w Diff Pending, WBC Pending, RBC Pending, Hgb Pending, Hct Pending, MCV Pending, MCH Pending, MCHC Pending, RDW Pending, Plt Count Pending, MPV Pending 10/04/17 1825: Anion Gap 8, Estimated GFR > 60, BUN/Creatinine Ratio 50.0 H, Glucose 85, Calcium 9.1, Total Bilirubin 0.6, AST 13 L, ALT 26, Alkaline Phosphatase 58, Total Protein 5.7 L, Albumin 2.9 L, Globulin 2.8, Albumin/Globulin Ratio 1.0 L, CBC w Diff NO MAN DIFF REQ, RBC 4.05 L, MCV 76.7 L, MCH 25.0 L, MCHC 32.6 L, RDW 17.7 H, MPV 7.7, Gran % 89.7 H, Lymphocytes % 5.7 L, Monocytes % 4.3, Eosinophils % 0.1, Basophils % 0.2, Absolute Granulocytes 12.8 H, Absolute Lymphocytes 0.8 L, Absolute Monocytes 0.6, Absolute Eosinophils 0, Absolute Basophils 0 Assessment/Plan Assessment: Patient is an 82-year-old female with PMH significant for dementia, COPD, GERD, already on 5 mg prednisone twice a day, who presented status post mechanical fall and her home. She has a right tibial fracture. #Right tibial fracture Patient is not a candidate for surgery. -To remain in right knee immobilizer and nonweightbearing of the right leg and to follow-up with orthopedics in 6 weeks -Patient to go to STR pain was under control -Continue pain control with IV Tylenol, IV toradol, will avoid opiates given advanced age and history of dementia -Patient has had DEXA scan in the past but reports that it was normal. Patient takes vitamin D supplements as an outpatient #Chronic microcytic anemia Iron studies within normal limits with the exception mildly decreased iron -Will follow CBCs #Leukocytosis, improving Likely reactive -We'll monitor CBC #Chronic medical problems including dementia, RA, COPD, GERD -Continue home medications -TRC/nebs Diet: Regular diet DVT prophylaxis: Lovenox and ALPS CODE STATUS: DNR/DNI Problem List: 1. Fall 2. Tibial plateau fracture, right Pain Ratin Pain Location: RLE Pain Goal: Pain 4 or less Pain Plan: pain pathway Tomorrow's Labs & Rationales: cbc Phillip Rai MD 10/05/17 1753: Attending MD Review Statement Attending Statement Attending MD Statement: examined this patient, discuss w/resident/PA/MARKER ASSEMBLER, agreed w/resident/PA/MARKER ASSEMBLER, discussed with family, reviewed EMR data (avail), discussed with nursing, discussed with case mgmt, amended to note Attending Assessment/Plan: The patient was seen and discussed with house staff. Agree with plan of care. The patient did have DEXA done at one time per daughter, however has been on custodial prednisone and has diagnosis of RA. Suspect should be on therapy. Will Rx with Ca/Vit D at present and eventual evaluation. Has seen neurology (Dr. Persaud) for dementia, however may benefit from OP Geriatric consult.
[2017-10-05 08:17] LABS: ABSOLUTE BASOPHIL COUNT 0 /CUMM (0.0-0.2); ABSOLUTE EOSINOPHIL COUNT 0 /CUMM (0.0-0.7); ABSOLUTE GRANULOCYTE CT 9.6 /CUMM (1.4-6.5); ABSOLUTE LYMPH COUNT 0.7 /CUMM (1.2-3.4); ABSOLUTE MONOCYTE COUNT 0.6 /CUMM (0.10-0.60); BASOPHIL % 0.1 % (0.0-2.0); EOSINOPHIL % 0.3 % (0-5); HEMATOCRIT 29.1 % (37-47); MEAN CORPUSCULAR HGB 25.1 PG (27.0-31.0); MEAN CORPUSCULAR HGB CONC 32.4 G/DL (33.0-37.0); MEAN CORPUSCULAR VOLUME 77.4 FL (81.0-99.0); MEAN PLATELET VOLUME 8.1 FL (7.4-10.4); PLATELET COUNT 345 /CUMM (130-400); RBC DISTRIBUTION WIDTH 17.8 % (11.5-14.5); RED BLOOD CELL CT 3.76 /CUMM (4.20-5.40)
[2017-10-05 09:19] LABS: GRANULOCYTE % 87.6 % (42.2-75.2)
--- NOTE | 2017-10-05 10:08 | Cons- Orthopedic ---
General Information and HPI Consulting Request Date of Consult: 10/05/17 Requested By: Jorge Luis Jacobs MD History of Present Illness: 82 yr old female with right knee pain s/p fall. patient had x-rays in ER which show an impacted right tibia lateral tibia plateau fracture. patient was placed into an immobilizer. patient reports pain at all times. patient on IV acetometophin. patient poor historian. Allergies/Medications Allergies: Coded Allergies: oxycodone (Intermediate, RASH 08/05/17) Home Med List: Aspirin (Aspirin*) 81 MG TAB.CHEW 1 TAB PO DAILY HEART HEALTH (Reported) Calcium Carbonate/Vitamin D3 (Calcium 500 + D Tablet) 500 MG-400 TABLET 1 TAB PO BID VITAMIN SUPPORT (Reported) Cholecalciferol (Vitamin D3) 1,000 UNIT TABLET 1 TAB PO DAILY VITAMIN SUPPORT (Reported) Donepezil HCl 10 MG TABLET 1 TAB PO DAILY DEMENTIA (Reported) Escitalopram Oxalate 10 MG TABLET 1 TAB PO DAILY MENTAL HEALTH (Reported) Lactobacillus Acidophilus (Probiotic) 10 BILLION CELL CAPSULE 2 CAP PO DAILY GI (Reported) Multivitamin (Daily Multiple Vitamin) 1 EACH TABLET 1 TAB PO DAILY VITAMIN SUPPORT (Reported) [place]-3 Fatty Acids/Fish Oil (Fish Oil 1,000 MG Capsule) 340 MG-1,000 MG CAPSULE 1 CAP PO DAILY SUPPLEMENT (Reported) Prednisone 5 MG TABLET 1 TAB PO BID STEROID (Reported) Past History Medical History Neurological: dementia EENT: NONE Cardiovascular: NONE Respiratory: COPD, emphysema Gastrointestinal: BARROTS ESOPHAGUS Hepatic: NONE Renal: NONE Musculoskeletal: RA Psychiatric: NONE Endocrine: NONE Blood Disorders: NONE Cancer(s): NONE MACADAM RAKER/Reproductive: NONE Surgical History Pertinent Surgical History: non-contributory Psychosocial History Where Do You Live? Home Smoking Status: Former Smoker ETOH Use: denies use Illicit Drug Use: denies illicit drug use Review of Systems Review of Systems: see chart Exam & Diagnostic Data Vital Signs and I&O Vital Signs Date Time Temp Pulse Resp B/P B/P Pulse O2 O2 Flow FiO2 Mean Ox Delivery Rate 10/05 0646 97.8 69 18 112/63 93 Room Air 10/05 0000 Room Air 10/04 2217 96.0 66 18 110/60 93 Room Air 10/04 2205 93 Room Air 10/04 2109 97.1 73 18 118/65 94 Room Air 10/04 1831 97.2 68 18 157/69 95 Room Air 10/04 1550 97.8 74 18 135/65 94 Room Air 10/04 1248 97.5 70 18 103/64 93 Room Air Intake & Output 10/05 1600 10/05 0800 10/05 0000 10/04 1600 10/04 0800 10/04 0000 Intake Total 600 85 Output Total Balance 600 85 Intake, IV 600 85 Intake, Oral 0 Number 1 Bowel Movements Patient 104 lb 102 lb 102 lb Weight Weight Bed scale Bed scale Measurement Method Physical Exam: right knee lateral joint line pain. +2 effusion right knee. right lower extremity n/v intact. 0-90 arom right knee. x-rays show a impacted lateral tibia plateau fracture with tricompartmental arthritis. Assessment/Plan Assessment/Plan right knee lateral tibia plateau fracture - immobilzer right knee - ice to right knee - nwb right lower extremity - f/u 6 weeks in our office for x-rays of right knee. patient not surgical candidate given co-morbidities and presence of tricompartmental arthritis in right knee. Consult Acknowledgment - Thank you for your consult request.
[2017-10-05 14:19] VITALS: BP 116/78
[2017-10-05 21:51] VITALS: BP 149/76
[2017-10-06 06:53] VITALS: BP 140/70
--- NOTE | 2017-10-06 07:21 | PN- Housestaff ---
Hardik CONTEH,nUruly 10/06/1721: Subjective Follow-up For: acute blood loss anemia with guaiac positive stool Mechanical fall with tibia fracture Subjective: Patient was seen and examined at bedside. She was resting comfortably. She had no acute events overnight. She continues complain of distal right lower extremity pain with motion, active or passive. She is also complaining of fatigue today. She has no other complaints and denies any lightheadedness, dizziness, chest pain, shortness of breath, nausea vomiting fever chills. Review of Systems Constitutional: Denies: chills, fever. Cardiovascular: Denies: chest pain, palpitations. Respiratory: Denies: cough, short of breath. Gastrointestinal: Denies: abdominal pain, melena, nausea, bloody stool, vomiting. Genitourinary: Reports: no symptoms. Musculoskeletal: Reports: see HPI. Objective Last 24 Hrs of Vital Signs/I&O Vital Signs Date Time Temp Pulse Resp B/P B/P Pulse O2 O2 Flow FiO2 Mean Ox Delivery Rate 10/06 0653 98.3 85 20 140/70 95 Room Air 10/05 2151 98.6 83 18 149/76 94 10/05 1419 97.5 73 20 116/78 92 / 1110 Room Air Intake & Output 10/06 0800 10/06 0000 10/05 1600 Intake Total 2320 Output Total Balance 2320 Intake, IV 700 Intake, Oral 1620 Number 1 0 Bowel Movements Physical Exam General Appearance: Alert, Cooperative, No Acute Distress Skin Temp/Moisture Exam: Warm/Dry Sepsis Skin Exam (color): Normal for Ethnicity Cardiovascular: Regular Rate, Normal S1, Normal S2 Lungs: diminished breath sounds Abdomen: Normal Bowel Sounds, Soft, No Tenderness Neurological: Normal Speech, Sensation Intact, Cranial Nerves 3-12 NL Extremities: RLE TTP below the knee, steristrips in place over an abrasion with no sign of active bleeding, no ecchymoses or hematomas on the leg Rectal guaiac positive dark brown stool Current Medications: Current Medications Sig/Danita Start time Last Medication Dose Route Stop Time Status Admin Acetaminophen 650 MG .STK-MED ONE 10/05 1956 DC PO 10/05 1957 Acetaminophen 1,000 MG .STK-MED ONE 10/05 852 DC IV 10/05 853 Acetaminophen 650 MG Q6P PRN 10/04 2044 AC 10/05 PO 1958 Acetaminophen 1,000 MG Q6P PRN 10/04 2044 AC 10/06 IV 0132 Aspirin 81 MG DAILY 10/05 1000 AC 10/05 PO 0855 Calcium 600 MG BID 10/05 1000 AC 10/05 PO 2151 Cholecalciferol 1,000 IU DAILY 10/05 1000 AC 10/05 PO 0855 Donepezil HCl 10 MG DAILY 10/05 1000 AC 10/05 PO 0856 Enoxaparin Sodium 40 MG DAILY 10/05 1000 AC 10/05 SC 0856 Escitalopram Oxalate 10 MG DAILY 10/05 1000 AC 10/05 PO 0855 Ketorolac 30 MG .STK-MED ONE 10/05 2224 DC Tromethamine IM 10/05 2225 Ketorolac 15 MG Q6P PRN 10/04 2044 AC 10/05 Tromethamine IV 10/07 Patient Medication 1 ED ONE ONE 10/05 1030 DC Teaching ED 10/05 1031 Prednisone 5 MG DAILY 10/05 999 AC 10/05 PO 0855 Promethazine HCl 25 MG ONCE ONE 10/05 2114 DC 10/05 IV 10/06 2115 2131 Sodium Chloride 1,000 ML Q13H 10/04 2030 DC 10/05 IV 10/05 2228 204 Last 24 Hrs of Lab/John Results Last 24 Hrs of Labs/Mics: Laboratory Tests 10/05/17 1000: Vitamin B12 Cancelled 10/05/17 0859: Iron 32 L, TIBC 291, Ferritin 30.7, Vitamin B12 915, 25-OH Vitamin D Total 35.5 , TSH 1.730 Assessment/Plan Assessment: Patient is an 82-year-old female with PMH significant for dementia, COPD, GERD, already on 5 mg prednisone twice a day, who presented status post mechanical fall and her home. She has a right tibial fracture. #acute blood loss anemia, on chronic anemia Patient had an acute drop in each association today. Was found to have guaiac positive stool. She is on aspirin at home and was being treated with NSAIDs in- house, both of which were held. GI was consulted, spoke with Dr. Vega, who will be performing an EGD tomorrow morning. Given patient's history of dementia may be difficult for her to tolerate a bowel prep, therefore colonoscopy will be deferred for now. -Nothing by mouth pending GI evaluation/EGD -Transfuse 2 units PRBCs -Oral PPI twice a day #Right tibial fracture Patient is not a candidate for surgery. -To remain in right knee immobilizer and nonweightbearing of the right leg and to follow-up with orthopedics in 6 weeks -Patient to go to [facility] pain when clinically stable -Converted to oral pain medication, NSAIDs stopped -Patient has had DEXA scan in the past but reports that it was normal. Patient takes vitamin D supplements as an outpatient #Chronic medical problems including dementia, RA, COPD, GERD -Continue home medications -TRC/nebs Diet: NPO DVT prophylaxis: ALPS, pharmacologic switched to subcutaneous heparin in light of bleeding CODE STATUS: DNR/DNI Problem List: 1. Tibial plateau fracture, right 2. Acute blood loss anemia 3. GI bleed Pain Ratin Pain Location: pain well controlled at rest Pain Goal: Remain pain free Pain Plan: convert to oral pain meds, DCed NSIAD Tomorrow's Labs & Rationales: cbc, bep Jorge Luis Jacobs MD 10/06/17 1356: Attending MD Review Statement Attending Statement Attending MD Statement: examined this patient, discuss w/resident/PA/ELECTRICAL APPLIANCE REPAIRER, agreed w/resident/PA/ELECTRICAL APPLIANCE REPAIRER, reviewed EMR data (avail) Attending Assessment/Plan: Pain is well controlled, had a large melanotic bowel movement in the morning with Hgb dropping. Continue current pain regimen, follow orthopedic and GI recommendations, monitor CBC, NPO after midnight for EGD tomorrow, continue DVT PPx for now due to high risk for VTE, but will stop if any further bleeding.
--- NOTE | 2017-10-06 07:52 | Discharge Summary ---
Visit Information Visit Dates Admission Date: 10/04/17 Discharge Date: 10/08/17 Hospital Course Course Attending Physician: Jorge Luis Jacobs MD Primary Care Physician: Gigi Gonzalez MD Hospital Course: 82F PMH dementia, COPD on chronic Prednisone, GERD admitted for mechanical fall while climbing up some stairs. She fell onto her knees, there was no head strike or LOC. She was unable to get up and bear weight on her right leg. She did have bleeding from a skin tear on the right leg. Patient denied any symptoms other than right knee pain. At baseline, patient needs help with her ADLs. Patient was started on oral PPI twice a day. Please avoid NSAIDS and discontinue aspirin. Colonoscopy deferred at this time. On discharge, patient feels well, pain is well controlled, no symptoms of anemia or further signs of bleeding. Problem List 1. Mechanical fall with impacted right tibial plateau fracture Patient not surgical candidate given co-morbidities and presence of tricompartmental arthritis in right knee. Knee immobilzer placed on the right knee, ice as needed and no weight bearing on the right knee. Follow up in 6 weeks at the orthopedic surgeon's office for x-rays of right knee. DVT prophylaxis with SC heparin till discontinued by Orthopedic surgeon. 2. Acute blood loss anemia with guaiac positive stool Course complicated by melena with Hgb drop, though asymptomatic, required transfusion 2 units pRBC. Endoscopy was done which revealed multiple gastric ulcers, hiatal hernia and previously know Kingston's esophagus. Complications: Melena Allergies: Coded Allergies: oxycodone (Intermediate, RASH 08/05/17) Significant Procedures: Endoscopy on 10/07/17 Pertinent Lab Results: EXAM TYPE: RAD - XRY-KNEE COMPLETE RIGHT; [id number], RIGHT IMPRESSION: 1. Intra-articular comminuted impacted fracture of the lateral tibial plateau. Lipohemarthrosis of the knee joint. This can be further assessed with CT scan. 2. 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 3. Degenerative joint narrowing of the ankle joint. EGD Impression: * Gastric and duodenal ulcers. No stigmata of recent/potential bleeding, nor evident blood. * Hiatal hernia * Previously diagnosed short segment Kingston's esophagus, biopsied. No erosive esophagitis Disposition Summary Disposition Principal Diagnosis: 1. Mechanical fall with impacted right tibial plateau fracture Additional Diagnosis: 2. Acute blood loss anemia with guaiac positive stool Discharge Disposition: SNF Discharge Instructions General Discharge Information Code Status: Do Not Resucitate/Intubat Patient's Diet: Regular Patient's Activity: As tolerated Follow-Up Instructions/Appts: Please avoid NSAIDS like motrin, naproxen etc and discontinue aspirin Please take your new medicines as prescribed and do not stop them till cleared by your doctor No weight bearing of the right lower extremity Please follow up with the orthopedic surgeon in 6 weeks for x-rays of right knee Please follow up with your GI doctor in 1-2 week for pathology results from your biopsy Please follow up with your PCP in 1 week Medications at Discharge Discharge Medications: Stop taking the following medications: Aspirin (Aspirin*) 81 MG TAB.CHEW ORAL DAILY Continue taking these medications: Prednisone (Prednisone) 5 MG TABLET 1 Tablet ORAL TWICE DAILY Qty = 90 Escitalopram Oxalate (Escitalopram Oxalate) 10 MG TABLET 1 Tablet ORAL DAILY Qty = 30 Donepezil HCl (Donepezil HCl) 10 MG TABLET 1 Tablet ORAL DAILY Qty = 30 [place]-3 Fatty Acids/Fish Oil (Fish Oil 1,000 MG Capsule) 340 MG-1,000 MG CAPSULE 1 Capsule ORAL DAILY Cholecalciferol (Vitamin D3) 1,000 UNIT TABLET 1 Tablet ORAL DAILY Calcium Carbonate/Vitamin D3 (Calcium 500 + D Tablet) 500 MG-400 TABLET 1 Tablet ORAL TWICE DAILY Lactobacillus Acidophilus (Probiotic) 10 BILLION CELL CAPSULE 2 Capsule ORAL DAILY Multivitamin (Daily Multiple Vitamin) 1 EACH TABLET 1 Tablet ORAL DAILY Start taking the following new medications: Omeprazole (Omeprazole) 20 MG CAPSULE.DR 40 Milligram ORAL TWICE DAILY Qty = 30 No Refills Enoxaparin Sodium (Lovenox) 40 MG/0.4 ML SYRINGE 40 Milligram Inject into fatty tissue DAILY Qty = 1 No Refills Tramadol HCl (Tramadol HCl) 50 MG TABLET 50 Milligram ORAL Every 12 hours as needed as needed for PAIN SCALE 7-10 ( SEVERE) Qty = 10 No Refills Acetaminophen (Tylenol) 325 MG TABLET 650 Milligram ORAL EVERY SIX HOURS NEEDED as needed for PAIN SCALE 4-6 ( MODERATE) Qty = 30 No Refills Acetaminophen (Acetaminophen) 500 MG TABLET 500 Milligram ORAL EVERY SIX HOURS NEEDED as needed for PAIN SCALE 1-3 ( MILD) Qty = 30 No Refills Cephalexin (Keflex) 500 MG CAPSULE 1 Capsule ORAL TWICE DAILY Qty = 12 No Refills Copies To: Carlos CONTEH,Gigi Zayas
[2017-10-06 08:21] LABS: ABSOLUTE BASOPHIL COUNT 0 /CUMM (0.0-0.2); ABSOLUTE EOSINOPHIL COUNT 0.1 /CUMM (0.0-0.7); ABSOLUTE GRANULOCYTE CT 7.8 /CUMM (1.4-6.5); ABSOLUTE LYMPH COUNT 0.6 /CUMM (1.2-3.4); ABSOLUTE MONOCYTE COUNT 0.4 /CUMM (0.10-0.60); BASOPHIL % 0.5 % (0.0-2.0); EOSINOPHIL % 1.1 % (0-5); MEAN CORPUSCULAR HGB 24.6 PG (27.0-31.0); MEAN CORPUSCULAR VOLUME 77.1 FL (81.0-99.0); MEAN PLATELET VOLUME 8.1 FL (7.4-10.4); PLATELET COUNT 240 /CUMM (130-400); RBC DISTRIBUTION WIDTH 18.3 % (11.5-14.5)
[2017-10-06 09:35] LABS: RED BLOOD CELL CT 2.72 /CUMM (4.20-5.40)
[2017-10-06 16:08] VITALS: BP 142/62
--- NOTE | 2017-10-06 16:29 | Cons- Gastroenterology ---
General Information and HPI Consulting Request Date of Consult: 10/06/17 Requested By: Jorge Luis Jacobs MD Reason for Consult: I was called midday today by the hospitalist service to assess anemia and dark brown, OB positive stool, in a patient on baby aspirin , NSAIDs, and prednisone Source of Information: family (pt's dtr, Tiff, jesse in room), old records Exam Limitations: unable to give history, dementia, previous GI records in [place] History of Present Illness: 82 y/o female, DNR/DNR (POA- pt's dtr- Charityvijay Watson), with dementia on Donepezil, ex-smoker, COPD, GERD/Abraham's esophagus (on outpt PPI prn), rheumatoid arthritis on chronic Prednisone therapy (? outpt dosage) & Cimzia Q month, history of falls, prior left THR, living with her daughter for the past year, admitted to [facility] 10/04/17, after a reported mechanical fall at home. She fell on her right conway and had a right comminuted tibial plateau fracture. There was no head trauma or LOC. There was no definite chest pain, palpitations, shortness of breath, or focal neurologic deficits, but the patient was a very poor historian. She has documented spinal fractures. For the past few weeks CLAIMS COORDINATOR, the patient had URI symptoms and decreased po intake. She was using Ensure supplements. She was essentially completely dependent upon her family members for her ADL. The patient previously had a GI workup in [facility], [place], with last colonoscopy reportedly 5 years ago- results currently unknown. She also had EGD in [place] or [facility], unsure as to exactly when, reportedly revealing GERD/Abraham's esophagus. She reportedly has chronic microcytic indices. The patient was seen by orthopedics who recommended nonweightbearing for 6 weeks with transfer to wheelchair, along with a knee immobilizer. She was admitted to General Medicine. She had been given IV Tylenol and Ketorolac, in addition to her baby ASA and Prednisone. She was also getting Lovenox for DVT prophylaxis, switched to sc heparin. She is awaiting STR. She has remained hemodynamically stable and afebrile throughout the course of her hospitalization, with O2 sat RA- 92%. *The GI service was called 10/06/17 , as the patient's H/H dropped to 6.7/21 (*see below), and she was found to have dark brown OB-positive stool on digital exam, API. She previously was known to have dark stool on iron. Her baby aspirin & Ketorolac were D/C on 10/06/17. Her Lovenox was switched to sc heparin. IV Protonix 40 mg daily was rx on 10/06, but was switched to Omeprazole 40 mg po BID. She remained on Prednisone at a current dose of 5 mg daily. She is in the midst of her 2nd unit PRBC on 10/06/17. The patient is very forgetful and cannot give any further meaningful history. 10/04/17: Admission labs- WBC 14.3 (90% gran/13 gran Ab), H/H 10.1/31.0, MCV 76.7, RDW 17.7, PLT 397 (*no coags sent), glucose 85, BUN/Cr 25/0.5, GFR > 60, Na 138, K 4.5, HCO3 27, AG 8, Ca 9.1, albumin 2.9, globulin 2.8, TBil 0.6, alk phos 58, AST 13, ALT 26 10/05/17: Fe 32, TIBC 291, Fe sat 11%, ferritin 30.7, B12 915 (no RBC folate), Vit D 35.5, TSH 1.73. 10/05/17: WBC 11.0 (88% gran/10 gran Ab), H/H 9.4/29.1, MCV 77.4, RDW 17.8, PLT 345; BUN/Cr 30/0.6, GFR > 60, Na 141, K 4.1, HCO3 24, AG 9. 10/06/17: WBC 9.0, H/H 6.7/21.0, MCV 77.1, RDW 18.3, PLT 240. *No EKG on chart this admission 08/05/17: EKG- NSR @ 69, IRBBB/LAHB, LVH, NSST. 10/04/17: XRY-HIP 2-3 VIEWS, RIGHT- No acute findings at the right hip. DJD. Osteoporosis. 10/04/17: XRY-KNEE COMPLETE RIGHT; [id number], RIGHT- 1. Intra-articular comminuted impacted fracture of the lateral tibial plateau. Lipohemarthrosis of the knee joint. This can be further assessed with CT scan. 2. 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 3. Degenerative joint narrowing of the ankle joint. Allergies/Medications Allergies: Coded Allergies: oxycodone (Intermediate, RASH 08/05/17) Home Med List: Aspirin (Aspirin*) 81 MG TAB.CHEW 1 TAB PO DAILY HEART HEALTH (Reported) Calcium Carbonate/Vitamin D3 (Calcium 500 + D Tablet) 500 MG-400 TABLET 1 TAB PO BID VITAMIN SUPPORT (Reported) Cholecalciferol (Vitamin D3) 1,000 UNIT TABLET 1 TAB PO DAILY VITAMIN SUPPORT (Reported) Donepezil HCl 10 MG TABLET 1 TAB PO DAILY DEMENTIA (Reported) Escitalopram Oxalate 10 MG TABLET 1 TAB PO DAILY MENTAL HEALTH (Reported) Lactobacillus Acidophilus (Probiotic) 10 BILLION CELL CAPSULE 2 CAP PO DAILY GI (Reported) Multivitamin (Daily Multiple Vitamin) 1 EACH TABLET 1 TAB PO DAILY VITAMIN SUPPORT (Reported) [place]-3 Fatty Acids/Fish Oil (Fish Oil 1,000 MG Capsule) 340 MG-1,000 MG CAPSULE 1 CAP PO DAILY SUPPLEMENT (Reported) Prednisone 5 MG TABLET 1 TAB PO BID STEROID (Reported) Current Medications: Current Medications Sig/Danita Start time Last Medication Dose Route Stop Time Status Admin Acetaminophen 500 MG Q6P PRN 10/06 0800 AC 10/06 PO 1008 Acetaminophen 650 MG .STK-MED ONE 10/05 1956 DC PO 10/05 195 Acetaminophen 650 MG Q6P PRN 10/04 2045 AC 10/06 PO 1734 Acetaminophen 1,000 MG Q6P PRN 10/04 2045 DC 10/06 IV 0132 Aspirin 81 MG DAILY 10/05 1000 DC 10/05 PO 0855 Calcium 600 MG BID 10/05 1000 AC 10/06 PO 1009 Cholecalciferol 1,000 IU DAILY 10/05 1000 AC 10/06 PO 1009 Donepezil HCl 10 MG DAILY 10/05 1000 AC 10/06 PO 1008 Enoxaparin Sodium 40 MG DAILY 10/05 1000 DC 10/05 SC 0856 Escitalopram Oxalate 10 MG DAILY 10/05 1000 AC 10/06 PO 1009 Heparin Sodium 5,000 UNIT Q8 10/06 1400 AC 10/06 (Porcine) SC 1433 Ketorolac 30 MG .STK-MED ONE 03/07 2225 DC Tromethamine IM 10/05 2225 Ketorolac 15 MG Q6P PRN 10/04 2044 DC 10/05 Tromethamine IV 10/08 2043 222 Omeprazole 40 MG BID 10/06 1137 DC 10/06 PO 1433 Pantoprazole Sodium 40 MG BID 10/06 2199 UNVr IV Pantoprazole Sodium 40 MG DAILY 10/06 1121 DC IV Prednisone 5 MG DAILY 10/05 1000 AC 10/06 PO 1009 Promethazine HCl 25 MG ONCE ONE 10/05 2114 DC 10/05 IV 10/05 Sodium Chloride 1,000 ML Q13H 10/04 2030 DC 10/05 IV 10/05 Tramadol HCl 50 MG Q12P PRN 10/06 0800 AC PO Past History Travel History Traveled to [place] past 21 day No Medical History Blood Transfusion Hx: Yes (10/06/17) Neurological: dementia EENT: NONE Cardiovascular: NONE Respiratory: COPD, emphysema Gastrointestinal: ABRAHAM'S ESOPHAGUS Hepatic: NONE Renal: NONE Musculoskeletal: degen joint disease, falls, RA Psychiatric: anxiety, depression (on Lexapro; OBS) Endocrine: osteoporosis, vitamin D deficiency Blood Disorders: anemia Cancer(s): NONE 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 chest tubes to drain lung/ PNA Family History Relations & Conditions If Any: Relation not specified for: Family history unobtainable Psychosocial History Where Do You Live? Home Who Do You Live With? child (dtr/S-I-L/granddtr) Services at Home: unknown Primary Language: Fijian Smoking Status: Former Smoker ETOH Use: denies use Illicit Drug Use: denies illicit drug use Living Will? yes (DNR/DNI) Power of Retail Loss Prevention Investigator/HCP? 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 Ex-100 pk yr smoker, D/C 12/2016. No EtOH. 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 Lives with dtr, S-I-L, & granddtr. Functional Ability ADLs Needs Assist: dressing, eating, toileting, bathing. Ambulation: independent (previously, prior to R tib fx) IADLs Needs Assist: shopping, housework, finances, food prep, telephone, transportation, medication admin. 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 Profession/Employer: None Review of Systems Review of Systems: Full 14 point review of systems otherwise unobtainable from patient, due to OBS Review of Systems All Other Systems: Reviewed and Negative (unobtainable) Exam & Diagnostic Data Vital Signs and I&O Vital Signs Date Time Temp Pulse Resp B/P B/P Pulse O2 O2 Flow FiO2 Mean Ox Delivery Rate 10/06 1608 98.2 90 18 142/62 92 Room Air 10/06 1227 Room Air 10/06 0653 98.3 85 20 140/70 95 Room Air 10/05 2151 98.6 83 18 149/76 94 Intake & Output 10/06 1600 10/06 0400 10/05 1600 10/05 0400 10/04 1600 10/04 0400 Intake Total 1350 2920 85 Output Total Balance 1350 2920 85 Intake, Blood 150 Product Intake, IV 600 1300 85 Intake, Oral 600 1620 0 Number 2 1 0 1 Bowel Movements Patient 104 lb 104 lb 102 lb 102 lb Weight Weight Bed scale Bed scale Bed scale Measurement Method Physical Exam: Well-developed, slightly malnourished fragile elderly female, pleasantly confused & forgetful, in no apparent distress. Sclera anicteric. Conjunctiva pale. Oropharynx clear. No oral thrush. No aphthous ulcers. There is no adenopathy, thyromegaly, or JVD. No peripheral stigmata of inflammatory bowel disease or chronic liver disease on exam. No spiders on the anterior chest wall. No CVA tenderness. Lungs: clear to A&P, with slightly prolonged expiratory phase & decreased BS at the bases B/L. Heart exam: regular rate rhythm, S1 and S2, with I/ systolic murmur. Abdominal exam: normal bowel sounds, soft belly, essentially nontender, without guarding or rebound. No mass. No organomegaly. No fluid shift. No pulsatile mass. No epigastric bruit. Digital rectal exam API 10/06/17: dark brown stool, OB-positive (not repeated by myself). Extremities: without cyanosis or clubbing. Trace right pedal edema, post right tibial fracture. Old left THR. Deforming RA hands B/L >> DJD. No active crepitus. No palpable cords. Distal pulses 1+ bilaterally. DTRs 2+ bilaterally. No rash. No palmar erythema. No Dupuytren's contractures. Alert and oriented x 2 ("1996"). *Extremely forgetful. Not fully cooperative with CN testing. Motor 4/5 B/L, except RLE immobilized. No tremor. No asterixis. Results Pertinent Lab Results: Laboratory Tests 10/06 10/05 10/05 0715 UNK 0859 Chemistry Iron (37 - 170 ug/dL) 32 L TIBC (265 - 497 ug/dL) 291 Ferritin (11.1 - 264 ng/mL) 30.7 Vitamin B12 (239 - 931 pg/mL) Cancelled 915 25-OH Vitamin D Total (30 - 100 ng/ml) 35.5 TSH (0.270 - 4.200 uIU/mL) 1.730 Hematology CBC w Diff NO MAN DIFF REQ WBC (4.8 - 10.8 /CUMM) 9.0 RBC (4.20 - 5.40 /CUMM) 2.72 L Hgb (12.0 - 16.0 G/DL) 6.7 *L Hct (37 - 47 %) 21.0 L MCV (81.0 - 99.0 FL) 77.1 L MCH (27.0 - 31.0 PG) 24.6 L MCHC (33.0 - 37.0 G/DL) 32.0 L RDW (11.5 - 14.5 %) 18.3 H Plt Count (130 - 400 /CUMM) 240 MPV (7.4 - 10.4 FL) 8.1 Gran % (42.2 - 75.2 %) 87.0 H Lymphocytes % (20.5 - 51.1 %) 6.7 L Monocytes % (1.7 - 9.3 %) 4.7 Eosinophils % (0 - 5 %) 1.1 Basophils % (0.0 - 2.0 %) 0.5 Absolute Granulocytes (1.4 - 6.5 /CUMM) 7.8 H Absolute Lymphocytes (1.2 - 3.4 /CUMM) 0.6 L Absolute Monocytes (0.10 - 0.60 /CUMM) 0.4 Absolute Eosinophils (0.0 - 0.7 /CUMM) 0.1 Absolute Basophils (0.0 - 0.2 /CUMM) 0 10/05 10/05 0702 0636 Chemistry Sodium (137 - 145 mmol/L) 141 Potassium (3.5 - 5.1 mmol/L) 4.1 Chloride (98 - 107 mmol/L) 108 H Carbon Dioxide (22 - 30 mmol/L) 24 Anion Gap (5 - 16) 9 BUN (7 - 17 mg/dL) 30 H Creatinine (0.5 - 1.0 mg/dL) 0.6 Estimated GFR (>60 ml/min) > 60 BUN/Creatinine Ratio (7 - 25 %) 50.0 H 25-OH Vitamin D Total Cancelled Hematology CBC w Diff NO MAN DIFF REQ WBC (4.8 - 10.8 /CUMM) 11.0 H RBC (4.20 - 5.40 /CUMM) 3.76 L Hgb (12.0 - 16.0 G/DL) 9.4 L Hct (37 - 47 %) 29.1 L MCV (81.0 - 99.0 FL) 77.4 L MCH (27.0 - 31.0 PG) 25.1 L MCHC (33.0 - 37.0 G/DL) 32.4 L RDW (11.5 - 14.5 %) 17.8 H Plt Count (130 - 400 /CUMM) 345 MPV (7.4 - 10.4 FL) 8.1 Gran % (42.2 - 75.2 %) 87.6 H Lymphocytes % (20.5 - 51.1 %) 6.4 L Monocytes % (1.7 - 9.3 %) 5.6 Eosinophils % (0 - 5 %) 0.3 Basophils % (0.0 - 2.0 %) 0.1 Absolute Granulocytes (1.4 - 6.5 /CUMM) 9.6 H Absolute Lymphocytes (1.2 - 3.4 /CUMM) 0.7 L Absolute Monocytes (0.10 - 0.60 /CUMM) 0.6 Absolute Eosinophils (0.0 - 0.7 /CUMM) 0 Absolute Basophils (0.0 - 0.2 /CUMM) 0 10/04 1825 Chemistry Sodium (137 - 145 mmol/L) 138 Potassium (3.5 - 5.1 mmol/L) 4.5 Chloride (98 - 107 mmol/L) 103 Carbon Dioxide (22 - 30 mmol/L) 27 Anion Gap (5 - 16) 8 BUN (7 - 17 mg/dL) 25 H Creatinine (0.5 - 1.0 mg/dL) 0.5 Estimated GFR (>60 ml/min) > 60 BUN/Creatinine Ratio (7 - 25 %) 50.0 H Glucose (65 - 99 mg/dL) 85 Calcium (8.4 - 10.2 mg/dL) 9.1 Total Bilirubin (0.2 - 1.3 mg/dL) 0.6 AST (14 - 36 U/L) 13 L ALT (9 - 52 U/L) 26 Alkaline Phosphatase (<127 U/L) 58 Total Protein (6.3 - 8.2 g/dL) 5.7 L Albumin (3.5 - 5.0 g/dL) 2.9 L Globulin (1.9 - 4.2 gm/dL) 2.8 Albumin/Globulin Ratio (1.1 - 2.2 %) 1.0 L Hematology CBC w Diff NO MAN DIFF REQ WBC (4.8 - 10.8 /CUMM) 14.3 H RBC (4.20 - 5.40 /CUMM) 4.05 L Hgb (12.0 - 16.0 G/DL) 10.1 L Hct (37 - 47 %) 31.0 L MCV (81.0 - 99.0 FL) 76.7 L MCH (27.0 - 31.0 PG) 25.0 L MCHC (33.0 - 37.0 G/DL) 32.6 L RDW (11.5 - 14.5 %) 17.7 H Plt Count (130 - 400 /CUMM) 397 MPV (7.4 - 10.4 FL) 7.7 Gran % (42.2 - 75.2 %) 89.7 H Lymphocytes % (20.5 - 51.1 %) 5.7 L Monocytes % (1.7 - 9.3 %) 4.3 Eosinophils % (0 - 5 %) 0.1 Basophils % (0.0 - 2.0 %) 0.2 Absolute Granulocytes (1.4 - 6.5 /CUMM) 12.8 H Absolute Lymphocytes (1.2 - 3.4 /CUMM) 0.8 L Absolute Monocytes (0.10 - 0.60 /CUMM) 0.6 Absolute Eosinophils (0.0 - 0.7 /CUMM) 0 Absolute Basophils (0.0 - 0.2 /CUMM) 0 Imaging/Other Studies: *No EKG on chart this admission 08/05/17: EKG- NSR @ 69, IRBBB/LAHB, LVH, NSST. 10/04/17: XRY-HIP 2-3 VIEWS, RIGHT- No acute findings at the right hip. DJD. Osteoporosis. 10/04/17: XRY-KNEE COMPLETE RIGHT; [id number], RIGHT- 1. Intra-articular comminuted impacted fracture of the lateral tibial plateau. Lipohemarthrosis of the knee joint. This can be further assessed with CT scan. 2. 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 3. Degenerative joint narrowing of the ankle joint. Assessment/Plan Assessment/Recommendations: 82 y/o female, DNR/DNR (POA- pt's dtr- Charity Watson), with dementia on Donepezil, ex-smoker, COPD, GERD/Abraham's esophagus (on outpt PPI prn), rheumatoid arthritis on chronic Prednisone therapy (? outpt dosage) & Cimzia Q month, history of falls, prior left THR, living with her daughter for the past year, admitted to [facility] 10/04/17, after a reported mechanical fall at home. She fell on her right conway and had a right comminuted tibial plateau fracture. There was no head trauma or LOC. There was no definite chest pain, palpitations, shortness of breath, or focal neurologic deficits, but the patient was a very poor historian. She has documented spinal fractures. For the past few weeks CLAIMS COORDINATOR, the patient had URI symptoms and decreased po intake. She was using Ensure supplements. She was essentially completely dependent upon her family members for her ADL. The patient previously had a GI workup in [facility], [place], with last colonoscopy reportedly 5 years ago- results currently unknown. She also had EGD in [facility], unsure as to exactly when, reportedly revealing GERD/Abraham's esophagus. She reportedly has chronic microcytic indices. The patient was seen by orthopedics who recommended nonweightbearing for 6 weeks with transfer to wheelchair, along with a knee immobilizer. She was admitted to General Medicine. She had been given IV Tylenol and Ketorolac, in addition to her baby ASA and Prednisone. She was also getting Lovenox for DVT prophylaxis, switched to sc heparin. She is awaiting STR. She has remained hemodynamically stable and afebrile throughout the course of her hospitalization, with O2 sat RA- 92%. *The GI service was called 10/06/17 , as the patient's H/H dropped to 6.7/21 (*see below), and she was found to have dark brown OB-positive stool on digital exam, API. She previously was known to have dark stool on iron. Her baby aspirin & Ketorolac were D/C on 10/06/17. Her Lovenox was switched to sc heparin. IV Protonix 40 mg daily was rx on 10/06, but was switched to Omeprazole 40 mg po BID. She remained on Prednisone at a current dose of 5 mg daily. She is in the midst of her 2nd unit PRBC on . The patient is very forgetful and cannot give any further meaningful history. 10/04/17: Admission labs- WBC 14.3 (90% gran/13 gran Ab), H/H 10.1/31.0, MCV 76.7, RDW 17.7, PLT 397 (*no coags sent), glucose 85, BUN/Cr 25/0.5, GFR > 60, Na 138, K 4.5, HCO3 27, AG 8, Ca 9.1, albumin 2.9, globulin 2.8, TBil 0.6, alk phos 58, AST 13, ALT 26 10/05/17: Fe 32, TIBC 291, Fe sat 11%, ferritin 30.7, B12 915 (no RBC folate), Vit D 35.5, TSH 1.73. 10/05/17: WBC 11.0 (88% gran/10 gran Ab), H/H 9.4/29.1, MCV 77.4, RDW 17.8, PLT 345; BUN/Cr 30/0.6, GFR > 60, Na 141, K 4.1, HCO3 24, AG 9. 10/06/17: WBC 9.0, H/H 6.7/21.0, MCV 77.1, RDW 18.3, PLT 240. *No EKG on chart this admission 08/05/17: EKG- NSR @ 69, IRBBB/LAHB, LVH, NSST. 10/04/17: XRY-HIP 2-3 VIEWS, RIGHT- No acute findings at the right hip. DJD. Osteoporosis. 10/04/17: XRY-KNEE COMPLETE RIGHT; [id number], RIGHT- 1. Intra-articular comminuted impacted fracture of the lateral tibial plateau. Lipohemarthrosis of the knee joint. This can be further assessed with CT scan. 2. 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 3. Degenerative joint narrowing of the ankle joint. *The patient is demented. She reportedly had EGD and colonoscopy in [place] vs. [place], [place]. Uncertain as to the colonoscopy results, reportedly done 5 years ago. She reportedly has a history of GERD/Abraham's esophagus by previous EGD in [place] vs. [place], [place]. Her PMD, Dr. Gonzalez, may have access to these records. *She has numerous risk factors for peptic ulcer disease, namely COPD, aspirin use, NSAIDs, Prednisone, etc., with elevated BUN/ Cr ratio. It may be difficult to get her to take a prep for a colonoscopy with her underlying dementia. Furthermore, she recently fractured her right tibia. The patient is an extremely poor historian and very forgetful. She ate solids for breakfast this morning, which prohibited EGD this afternoon. SUGGEST: Clears po, then NPO after 11:59 p.m. for EGD on 10/07/17. Switch po PPI to IV PPI BID. No NSAIDs. Hold ASA. Carefully continue Prednisone for RA (defer to medical team as to whether patient needs stress dose steroids). Check CBC Q12h for now. Keep Hgb > 7 (no documented hx ASHD). Supplemental O2 as needed. Strict I/O's. *Check PT/PTT. *Consideration for dry CT AP per medical team, to rule out retroperitoneal hematoma, post fall. *Consider checking a celiac panel (i.e.- IgA, tTG Ab, DGP Ab). *Add RBC folate to pre-transfx labs, if possible. If EGD negative, consideration for colonoscopy (? inpt vs. outpt). Nutrition consult for supplements. DVT prophylaxis. *Try to get old GI records from patient's PMD, Dr. Gonzalez. Follow up with orthopedics regarding right tibial plateau fracture, currently in immobilizer. The above was discussed with the medical house staff & with the patient's daughter/POA, Charity Watson, this p.m. (cell: [phone]/ H: [phone]). The GI service will follow up with the patient tomorrow, based on the hospital coverage schedule. Problem List: 1. Acute blood loss anemia 2. GI bleed 3. Malnutrition compromising bodily function 4. GERD (gastroesophageal reflux disease) 5. History of Abraham's esophagus 6. Fall 7. Tibial plateau fracture, right Copies To: Arlene CONTEH,Esther Gonzalez MD,Gigi Zayas; Avila CONTEH,Rocky Oliveira; Fabiano Santoro Consult Acknowledgment - Thank you for your consult request.
[2017-10-06 21:15] VITALS: BP 140/80
--- NOTE | 2017-10-07 06:58 | PN- Housestaff ---
Hardik CONTEH,Unruly 10/07/17 0657: Subjective Follow-up For: acute blood loss anemia with guaiac positive stool Mechanical fall with tibia fracture Subjective: Patient was seen and examined at bedside. She was resting comfortably. She had no acute events overnight. She tolerated transfusions of 2 units PRBC yesterday well without incident. Overnight she was complaining of urinary frequency and dysuria, the 19th since UA and urine culture. Her pain is well controlled at rest. She continues to complain of pain with movement or palpation. She denies any nausea, vomiting, fever, chills, abdominal pain. Review of Systems Constitutional: Denies: chills, fever. Cardiovascular: Denies: chest pain, palpitations. Respiratory: Denies: cough, short of breath. Gastrointestinal: Denies: abdominal pain, nausea, vomiting. Genitourinary: Reports: dysuria, frequency. Objective Last 24 Hrs of Vital Signs/I&O Vital Signs Date Time Temp Pulse Resp B/P B/P Pulse O2 O2 Flow FiO2 Mean Ox Delivery Rate 10/06 2115 98.0 81 18 140/80 94 Room Air 10/06 1608 98.2 90 18 142/62 92 Room Air 10/06 1227 Room Air Intake & Output 10/07 0000 10/06 1600 Intake Total 896 400 6664 Output Total 200 Balance 519 483 7556 Intake, Blood 350 150 Product Intake, IV 600 Intake, Oral 120 240 600 Number 0 1 Bowel Movements Output, Urine 200 Physical Exam General Appearance: Alert, Cooperative, No Acute Distress Cardiovascular: Regular Rate, Normal S1, Normal S2 Lungs: diminished breath sounds Abdomen: Normal Bowel Sounds, Soft, No Tenderness Neurological: Normal Speech, Normal Tone, Sensation Intact Extremities: R leg in knee immobilizer, kerlex dressing over abrasion on R leg Current Medications: Current Medications Sig/Danita Start time Last Medication Dose Route Stop Time Status Admin Acetaminophen 650 MG .STK-MED ONE 10/06 1734 DC PO 10/06 1735 Acetaminophen 500 MG Q6P PRN 10/07 799 AC 10/06 PO 1008 Acetaminophen 650 MG Q6P PRN 10/04 2044 AC 10/06 PO 1734 Acetaminophen 1,000 MG Q6P PRN 10/04 2044 DC 10/06 IV 0132 Aspirin 81 MG DAILY 10/05 999 DC 10/05 PO 0855 Calcium 600 MG BID 10/05 999 AC 10/06 PO 2124 Ceftriaxone Sodium 1,000 MG 0645 10/07 0645 DC IV 10/07 0646 Cholecalciferol 1,000 IU DAILY 10/05 1000 AC 10/06 PO 1009 Donepezil HCl 10 MG DAILY 10/05 1000 AC 10/06 PO 1008 Enoxaparin Sodium 40 MG DAILY 10/05 1000 DC 10/05 SC 0856 Escitalopram Oxalate 10 MG DAILY 10/05 1000 AC 10/06 PO 1009 Heparin Sodium 5,000 UNIT Q8 10/06 1400 AC 10/06 (Porcine) SC 2124 Ketorolac 15 MG Q6P PRN 10/04 2045 DC 10/05 Tromethamine IV 10/07 204 2227 Omeprazole 40 MG BID 10/06 1137 DC 10/06 PO 1433 Pantoprazole Sodium 40 MG BID 10/06 2200 AC 10/06 IV 2124 Pantoprazole Sodium 40 MG DAILY 10/06 1121 DC 10/06 IV 2125 Prednisone 5 MG DAILY 10/05 1000 AC 10/06 PO 1009 Tramadol HCl 50 MG Q12P PRN 10/06 0800 AC 10/06 PO 2231 Last 24 Hrs of Lab/John Results Last 24 Hrs of Labs/Mics: Laboratory Tests 10/07/17 0005: Urine Color YEL, Urine Clarity HAZY H, Urine pH 6.0, Ur Specific [place] 1.020, Urine Protein NEG, Urine Ketones 15 H, Urine Nitrite NEG, Urine Bilirubin NEG, Urine Urobilinogen 0.2, Ur Leukocyte Esterase LARGE H, Ur Microscopic SEDIMENT EXAMINED, Urine RBC RARE, Urine WBC 25-50 H, Ur Epithelial Cells RARE, Urine Bacteria PACKD H, Urine Mucus RARE, Urine Hemoglobin TRACE-INTACT, Urine Glucose NEG 10/06/17 0715: CBC w Diff NO MAN DIFF REQ, RBC 2.72 L, MCV 77.1 L, MCH 24.6 L, MCHC 32.0 L, RDW 18.3 H, MPV 8.1, Gran % 87.0 H, Lymphocytes % 6.7 L, Monocytes % 4.7, Eosinophils % 1.1, Basophils % 0.5, Absolute Granulocytes 7.8 H, Absolute Lymphocytes 0.6 L, Absolute Monocytes 0.4, Absolute Eosinophils 0.1, Absolute Basophils 0 Microbiology 10/07 0005 URINE ROUT: Urine Culture - RECD Assessment/Plan Assessment: Patient is an 82-year-old female with PMH significant for dementia, COPD, GERD, already on 5 mg prednisone twice a day, who presented status post mechanical fall and her home. She has a right tibial fracture. #acute blood loss anemia, on chronic anemia Patient will go for EGD this a.m. negative patient will require colonoscopy, if H/H remained stable may be possible to pursue as an outpatient. Patient tolerated transfusion of 2 units PRBCs yesterday. -IV PPI twice a day -Follow-up pretransfusion folate level #Right tibial fracture Patient is not a candidate for surgery. -To remain in right knee immobilizer and nonweightbearing of the right leg and to follow-up with orthopedics in 6 weeks -Patient to go to [facility] pain when clinically stable -Converted to oral pain medication, pain well controlled at rest -Patient has had DEXA scan in the past but reports that it was normal. Patient takes vitamin D supplements as an outpatient #UTI Last night patient complained of dysuria and frequency. UA was indicative of UTI, urine culture was sent. IV ceftriaxone was initiated. -Follow-up urine culture -continue ceftriaxone #Chronic medical problems including dementia, RA, COPD, GERD -Continue home medications -TRC/nebs Diet: NPO DVT prophylaxis: ALPS, pharmacologic switched to subcutaneous heparin in light of bleeding CODE STATUS: DNR/DNI Problem List: 1. GERD (gastroesophageal reflux disease) 2. Acute blood loss anemia 3. GI bleed 4. Tibial plateau fracture, right Pain Ratin Pain Location: pain well controlled at rest Pain Goal: Pain 4 or less Pain Plan: pain pathway, no NSAIDs, will avoid opiates Tomorrow's Labs & Rationales: cbc Jorge Luis Jacobs MD 10/07/17 1120: Attending MD Review Statement Attending Statement Attending MD Statement: examined this patient, discuss w/resident/PA/ENTRY LEVEL JAVA DEVELOPER, agreed w/resident/PA/ENTRY LEVEL JAVA DEVELOPER, reviewed EMR data (avail) Attending Assessment/Plan: 82F PMH dementia, COPD on chronic Prednisone, GERD admitted for mechanical fall while climbing up stairs with right tibial plateau fracture, not a candidate for surgery. Course complicated by melena with Hgb drop, though asymptomatic, required transfusion 2 units pRBC. Today patient feels well, pain controlled, no symptoms of anemia or further signs of bleeding. 1. Right tibial plateau fracture 2. Fall, initial 3. Acute blood loss anemia Plan - Continue on general medicine - NPO for EGD today - PPI - Follow GI and orthopedic recommendations - Monitor CBC - Continue home Prednisone - ALPS for DVT PPx - If CBC holds steady and depending on EGD results, will discharge tomorrow with outpatient colonoscopy
[2017-10-07 07:05] VITALS: BP 152/76
[2017-10-07 07:54] LABS: PT 13.1 SEC (9.4-12.5)
[2017-10-07 08:14] LABS: ABSOLUTE BASOPHIL COUNT 0 /CUMM (0.0-0.2); MEAN CORPUSCULAR HGB CONC 32.9 G/DL (33.0-37.0); WHITE BLOOD CELL COUNT 8.8 /CUMM (4.8-10.8)
[2017-10-07 08:38] LABS: ABSOLUTE EOSINOPHIL COUNT 0.1 /CUMM (0.0-0.7); ABSOLUTE LYMPH COUNT 1.2 /CUMM (1.2-3.4); ABSOLUTE MONOCYTE COUNT 0.5 /CUMM (0.10-0.60); BASOPHIL % 0.4 % (0.0-2.0); GRANULOCYTE % 79.6 % (42.2-75.2); MEAN CORPUSCULAR VOLUME 78.9 FL (81.0-99.0); MEAN PLATELET VOLUME 7.9 FL (7.4-10.4); PLATELET COUNT 304 /CUMM (130-400); RBC DISTRIBUTION WIDTH 16.8 % (11.5-14.5)
[2017-10-07 08:45] LABS: HEMATOCRIT 33.7 % (37-47); RED BLOOD CELL CT 4.27 /CUMM (4.20-5.40)
--- NOTE | 2017-10-07 10:43 | Discharge Summary ---
Hospital Course Allergies: Coded Allergies: oxycodone (Intermediate, RASH 08/05/17)
[2017-10-07 14:32] VITALS: BP 142/80
--- NOTE | 2017-10-07 15:13 | Proc Note Endoscopy ---
Endoscopy Procedure Procedure Date: 10/07/17 Procedure Type: EGD w/biopsy Body Team Member: Pavan Marcano M.D. ASA Classification: III Indications: Macrocytic anemia, worsening Hemoccult positive stool Instrument: diagnostic gastroscope Meds Received: MAC (O2 via mask) Patient's Tolerance: good Complications: none Extent Reached: second part of duodenum Procedure: Informed consent was obtained over the telephone from the patient's daughter. The patient was medicated. Lidocaine pharyngeal spray was administered. Pulse oximetry, blood pressure and cardiac monitoring were performed continuously throughout the procedure. The Olympus high-definition gastroscope was inserted into the mouth and advanced to the duodenum. Retroflexion was performed within the stomach to examine the cardia. Careful examination was performed. Findings: The esophagus had normal caliber and contour. There were no varices. There were no areas of erosion or ulceration, nor nodularity. The GE junction was at 37 cm, with an irregular Z line, and several small tongues extending proximally. 3 biopsies were obtained ("36 cm"). There was a hiatal hernia. The stomach had normal distention, except for in the prepyloric area, described below. There was no fresh or old blood within the gastric cavity. The cardia was normal. The mucosa and folds of the fundus, body and incisura were normal. In the prepyloric antrum there were markedly enlarged folds, and mucosal edema. On the posterior wall was a greater than 1 cm clean-based ulcer. There was no visible vessel, pigmented spot, or clot. Adjacent to it was a small ulceration. A third, punched out ulcer was seen on the lesser curvature. Multiple biopsies were obtained from this area. The pyloric channel was normal. Within the duodenal bulb and post bulbar area were multiple shallow ulcerations, from small to large. Each of these had white exudate without visible vessel or clot. The mucosa and folds of the duodenal sweep were normal. Impression: * Gastric and duodenal ulcers. No stigmata of recent/potential bleeding, nor evident blood. * Hiatal hernia * Previously diagnosed short segment Kingston's esophagus, biopsied. No erosive esophagitis Recommendations: * Await pathology * Follow-up CBC tomorrow; maintain hemoglobin greater than 8 * PPI twice a day by mouth * Avoid NSAIDs and discontinue ASA * May continue low molecular weight heparin to prophylax DVT * Begin regular/usual diet * Defer colonoscopy at this time CC: Carlos CONTEH,Gigi Zayas
[2017-10-07 17:36] LABS: ABSOLUTE BASOPHIL COUNT 0 /CUMM (0.0-0.2); ABSOLUTE EOSINOPHIL COUNT 0 /CUMM (0.0-0.7); ABSOLUTE GRANULOCYTE CT 7.7 /CUMM (1.4-6.5); ABSOLUTE LYMPH COUNT 0.6 /CUMM (1.2-3.4); ABSOLUTE MONOCYTE COUNT 0.3 /CUMM (0.10-0.60); BASOPHIL % 0.3 % (0.0-2.0); EOSINOPHIL % 0.4 % (0-5); HEMATOCRIT 37.5 % (37-47); MEAN CORPUSCULAR HGB 25.7 PG (27.0-31.0); MEAN CORPUSCULAR HGB CONC 32.4 G/DL (33.0-37.0); MEAN CORPUSCULAR VOLUME 79.5 FL (81.0-99.0); MEAN PLATELET VOLUME 7.6 FL (7.4-10.4); PLATELET COUNT 324 /CUMM (130-400); RBC DISTRIBUTION WIDTH 17.3 % (11.5-14.5); RED BLOOD CELL CT 4.72 /CUMM (4.20-5.40); WHITE BLOOD CELL COUNT 8.7 /CUMM (4.8-10.8)
[2017-10-07 17:56] LABS: GRANULOCYTE % 88.5 % (42.2-75.2)
[2017-10-07 21:25] VITALS: BP 150/90
[2017-10-08 06:08] VITALS: BP 150/70
[2017-10-08] MEDS ORDERED: KEFLEX500 M1 PO (07:48)
[2017-10-08] MEDS ORDERED: OMEPRAZOLE20 M2 PO (07:48)
[2017-10-08] MEDS ORDERED: LOVENOX40 MG/0.1 SC (07:54)
--- NOTE | 2017-10-08 07:58 | Patient Discharge Instructions ---
Discharge Instructions General Discharge Information You were seen/treated for: Tibial plateau fracture GI bleed with numerous gastric and duodenal ulcers You had these procedures: EGD (esophagogastroduodenoscopy) Special Instructions: Take all medications as directed. Nonweightbearing on R leg for 6 weeks until follow-up with orthopedic surgeon. Avoid Aspirin and NSAIDS. Require DVT prophylaxis until weightbearing again. Follow-up with Dr. Gramajo in 6 weeks. Follow-up with Dr. Davis within 2 weeks of discharge. Follow-up with your primary care physician within 1 week of discharge. Check CBC for anemia on 10/11/17. Activity Full Activity/No Limits: No Activity Limited to: No weight bearing (of R leg for 6 weeks) Acute Coronary Syndrome Inclusion Criteria At DC or during hospital stay patient has or had the following: ACS DIAGNOSIS No Discharge Core Measures Meds if any: Prescribed or Continued at Discharge Meds if any: NOT Prescribed or Continued at Discharge Congestive Heart Failure Inclusion Criteria At DC or during hospital stay patient has or had the following: CHF DIAGNOSIS No Discharge Core Measures Meds if any: Prescribed or Continued at Discharge Meds if any: NOT Prescribed or Continued at Discharge Cerebrovascular accident Inclusion Criteria At DC or during hospital stay patient has or had the following: CVA/TIA Diagnosis No Discharge Core Measures Meds if any: Prescribed or Continued at Discharge Meds if any: NOT Prescribed or Continued at Discharge Venous thromboembolism Inclusion Criteria VTE Diagnosis No VTE Type NONE VTE Confirmed by (Test) NONE Discharge Core Measures - Per Current guidelines, there needs to be overlap - treatment for the first 5 days of Warfarin therapy. - If discharged on Warfarin prior to 5 days of - overlap therapy, the patient will need to be - assessed for post discharge needs including - *Post discharge parental anticoagulation - *Warfarin and/or parental anticoagulation education - *Follow up date to check INR post discharge At least 5 days overlap therapy as Inpatient No Meds if any: Prescribed or Continued at Discharge Note: Overlap Therapy is Warfarin and Anticoagulant Meds if any: NOT Prescribed or Continued at Discharge
[2017-10-08] MEDS ORDERED: ACETAMINOPHEN500 M4 PO (08:00)
[2017-10-08] MEDS ORDERED: TYLENOL325 M1 PO (08:00)
[2017-10-08] MEDS ORDERED: TRAMADOL HCL50 M1 PO (08:00)
--- NOTE | 2017-10-08 08:07 | PN- Housestaff ---
Hardik CONTEH,Unruly 10/08/17 0807: Subjective Follow-up For: acute blood loss anemia with guaiac positive stool Mechanical fall with tibia fracture Subjective: Patient was seen and examined at bedside. She is resting comfortably. She had no events overnight. Her pain is well-controlled at rest. She went for EGD yesterday and tolerated the procedure well. She currently has no complaints. Review of Systems Constitutional: Reports: no symptoms. EENTM: Reports: no symptoms. Cardiovascular: Reports: no symptoms. Respiratory: Reports: no symptoms. Gastrointestinal: Reports: no symptoms. Genitourinary: Reports: no symptoms. Musculoskeletal: Reports: no symptoms. Skin: Reports: no symptoms. Objective Last 24 Hrs of Vital Signs/I&O Vital Signs Date Time Temp Pulse Resp B/P B/P Pulse O2 O2 Flow FiO2 Mean Ox Delivery Rate 10/08 0608 98.4 83 20 150/70 93 10/07 2125 98.1 77 18 150/90 93 Room Air 10/07 1432 97.7 81 18 142/80 92 Room Air Intake & Output 10/08 1600 10/08 0800 10/08 0000 Intake Total 240 240 Output Total 250 Balance -10 240 Intake, Oral 240 240 Output, Urine 250 Physical Exam General Appearance: Alert, Cooperative, No Acute Distress Skin Temp/Moisture Exam: Warm/Dry Sepsis Skin Exam (color): Normal for Ethnicity Cardiovascular: Regular Rate, Normal S1, Normal S2 Lungs: Clear to Auscultation Abdomen: Normal Bowel Sounds Neurological: Normal Speech, Sensation Intact Extremities: Pain with active and passive motion of RLE Current Medications: Current Medications Sig/Danita Start time Last Medication Dose Route Stop Time Status Admin Acetaminophen 500 MG Q6P PRN 10/06 0800 AC 10/06 PO 1008 Acetaminophen 650 MG Q6P PRN 10/04 2045 AC 10/07 PO 1555 Calcium 600 MG BID 10/05 1000 AC 10/07 PO 2050 Ceftriaxone Sodium 1,000 MG DAILY 10/08 1000 AC IV Cholecalciferol 1,000 IU DAILY 10/05 1000 AC 10/07 PO 1045 Donepezil HCl 10 MG DAILY 10/05 1000 AC 10/07 PO 1044 Enoxaparin Sodium 40 MG DAILY 10/08 1000 AC SC Escitalopram Oxalate 10 MG DAILY 10/05 1000 AC 10/07 PO 1045 Heparin Sodium 5,000 UNIT Q8 10/06 1400 DC 10/08 (Porcine) SD 0532 Lidocaine 1 JYOTI .STK-MED ONE 10/07 1509 MA TOP 10/07 1510 Lidocaine 50 ML .STK-MED ONE 10/07 1509 MA TOP 10/07 1510 Omeprazole 40 MG BID 10/07 2200 AC 10/07 PO 2050 Pantoprazole Sodium 40 MG BID 10/06 220 DC 10/07 IV 0954 Prednisone 5 MG DAILY 10/05 1000 AC 10/07 PO 1045 Tramadol HCl 50 MG Q12P PRN 10/06 0800 AC 10/08 PO 0116 Last 24 Hrs of Lab/John Results Last 24 Hrs of Labs/Mics: Laboratory Tests 10/08/17 0740: Sodium Pending, Potassium Pending, Chloride Pending, Carbon Dioxide Pending, Anion Gap Pending, BUN Pending, Creatinine Pending, BUN/Creatinine Ratio Pending , CBC w Diff Pending, WBC Pending, RBC Pending, Hgb Pending, Hct Pending, MCV Pending, MCH Pending, MCHC Pending, RDW Pending, Plt Count Pending, MPV Pending 10/07/17 1700: CBC w Diff NO MAN DIFF REQ, RBC 4.72, MCV 79.5 L, MCH 25.7 L, MCHC 32.4 L, RDW 17.3 H, MPV 7.6, Gran % 88.5 H, Lymphocytes % 6.9 L, Monocytes % 3.9, Eosinophils % 0.4, Basophils % 0.3, Absolute Granulocytes 7.7 H, Absolute Lymphocytes 0.6 L, Absolute Monocytes 0.3, Absolute Eosinophils 0, Absolute Basophils 0 Assessment/Plan Assessment: Patient is an 82-year-old female with PMH significant for dementia, COPD, GERD, already on 5 mg prednisone twice a day, who presented status post mechanical fall and her home. She has a right tibial fracture. #acute blood loss anemia, on chronic anemia EGD showed numerous gastric and duodenal ulcers with no signs of active bleeding -oral PPI BID - Patient discharged with instructions to follow-up with GI as an outpatient -Avoid aspirin and NSAIDs -Will follow-up CBC as an outpatient on 10/11/17 #Right tibial fracture Patient is not a candidate for surgery. -To remain in right knee immobilizer and nonweightbearing of the right leg and to follow-up with orthopedics in 6 weeks -pt stable for STR -Converted to oral pain medication, pain well controlled at rest -We'll follow up with Dr. Gramajo in 6 weeks is now patient #UTI Last night patient complained of dysuria and frequency. UA was indicative of UTI, urine culture was sent. IV ceftriaxone was initiated. -urine culture growing GNR -pt will be discharged on keflex #Chronic medical problems including dementia, RA, COPD, GERD -Continue home medications -TRC/nebs Diet: heart healthy diet DVT prophylaxis: ALPS, subcutaneous heparin CODE STATUS: DNR/DNI Problem List: 1. GI bleed 2. Acute blood loss anemia 3. Tibial plateau fracture, right Pain Ratin Pain Location: R hip pain well controlled at rest Pain Goal: Remain pain free Pain Plan: pain pathway Tomorrow's Labs & Rationales: none Discharge Plan Discharge Disposition: STR/NH Stable for Discharge? Yes Anticipated Discharge (Day): today If Discharged Today/In 24 Hrs: enter ant[facility] discharge ord, W/discharge paper done, DC summary done, CMR done Jorge Luis Jacobs MD 10/08/17 1442: Attending MD Review Statement Attending Statement Attending MD Statement: examined this patient, discuss w/resident/PA/GATEKEEPER, agreed w/resident/PA/GATEKEEPER, reviewed EMR data (avail) Attending Assessment/Plan: 82F PMH dementia, COPD on chronic Prednisone, GERD admitted for mechanical fall while climbing up stairs with right tibial plateau fracture, not a candidate for surgery. Course complicated by melena with Hgb drop, though asymptomatic, required transfusion 2 units pRBC. Today patient feels well, pain controlled, no symptoms of anemia or further signs of bleeding. Multiple gastric and duodenal ulcers found on EGD. 1. Right tibial plateau fracture 2. Fall, initial 3. Acute blood loss anemia Plan - Discharge to STR - Discontinue ASA - PPI - Follow GI and orthopedic recommendations - Continue home Prednisone
[2017-10-08 08:45] LABS: ABSOLUTE BASOPHIL COUNT 0 /CUMM (0.0-0.2); ABSOLUTE EOSINOPHIL COUNT 0.2 /CUMM (0.0-0.7); ABSOLUTE LYMPH COUNT 0.9 /CUMM (1.2-3.4); ABSOLUTE MONOCYTE COUNT 0.5 /CUMM (0.10-0.60); BASOPHIL % 0.3 % (0.0-2.0); HEMATOCRIT 36.5 % (37-47); MEAN CORPUSCULAR HGB CONC 32.5 G/DL (33.0-37.0); MEAN CORPUSCULAR VOLUME 79.8 FL (81.0-99.0); MEAN PLATELET VOLUME 8.1 FL (7.4-10.4); PLATELET COUNT 300 /CUMM (130-400); RBC DISTRIBUTION WIDTH 17.6 % (11.5-14.5); RED BLOOD CELL CT 4.58 /CUMM (4.20-5.40); WHITE BLOOD CELL COUNT 7.6 /CUMM (4.8-10.8)
[2017-10-08 13:29] VITALS: BP 150/70
== END 2017-10-08 15:10 | DRG 563 ==
LOC: ERH 12:43 → ERHI 19:59 → 2NB 19:59 → ENRESERV 20:27 → ENTRNSPT 21:09 → 2NB 21:40 → EDTRNSPTSTS 21:44 → EDTRNSPT 21:44 → CMPTRNSPT 21:50 → 2NB 10-05 08:22 → ENPENDDIS 10-08 11:25 → 2NB 10-08 15:10
PROVIDERS: Dermatology; Internal Medicine; Physician Assistant; Student in an Organized Health Care Education/Training Program
PROC: 30233N1 Transfusion of Nonautologous Red Blood Cells into Peripheral Vein, Percutaneous Approach (ICD-10-PCS; principal; 2017-10-06)
PROC: 0DB68ZX Excision of Stomach, Via Natural or Artificial Opening Endoscopic, Diagnostic (ICD-10-PCS; 2017-10-07)
DX: S82.141A Displaced bicondylar fracture of right tibia, initial encounter for closed fracture (principal); E46 Unspecified protein-calorie malnutrition; E86.0 Dehydration; J44.9 Chronic obstructive pulmonary disease, unspecified; D62 Acute posthemorrhagic anemia; K26.9 Duodenal ulcer, unspecified as acute or chronic, without hemorrhage or perforation; N39.0 Urinary tract infection, site not specified; K25.9 Gastric ulcer, unspecified as acute or chronic, without hemorrhage or perforation; F03.90 Unspecified dementia, unspecified severity, without behavioral disturbance, psychotic disturbance, mood disturbance, and anxiety; W01.0XXA Fall on same level from slipping, tripping and stumbling without subsequent striking against object, initial encounter; Z91.81 History of falling; Y92.009 Unspecified place in unspecified non-institutional (private) residence as the place of occurrence of the external cause; K21.9 Gastro-esophageal reflux disease without esophagitis; M06.9 Rheumatoid arthritis, unspecified; Z79.52 Long term (current) use of systemic steroids; Z96.649 Presence of unspecified artificial hip joint; Z88.5 Allergy status to narcotic agent; Z79.82 Long term (current) use of aspirin; K22.70 Barrett's esophagus without dysplasia; Z87.891 Personal history of nicotine dependence; D72.829 Elevated white blood cell count, unspecified; Z66 Do not resuscitate; F32.9 Major depressive disorder, single episode, unspecified; F41.9 Anxiety disorder, unspecified; E55.9 Vitamin D deficiency, unspecified; M81.0 Age-related osteoporosis without current pathological fracture; D50.9 Iron deficiency anemia, unspecified; K44.9 Diaphragmatic hernia without obstruction or gangrene
CPT/HCPCS: 2NBP; 2NSBP; 36415; 36592; 73502-RT; 73562-RT; 73590-RT; 81001; 82436; 86920; 87086; 97110-GO; 97161-GP; 97165-GO; 97530-GO; J0131; J0696; J1644; J1650; J1885; J2550; J3490; J7512; P9016